=== PATIENT | male | born 1940 | race African-American/Black ===

== ENCOUNTER 2016-06-15 02:07 | Inpatient (IN) | payer MEDICARE, MEDICAID ==
[2016-06-15] VITALS (7 sets, daily range): BP systolic 92–132; BP diastolic 52–80
[~2016-06-15] VITALS: Ht 185.4 cm; Wt 99.8 kg
[~2016-06-15 02:07] MED LIST: LORazepam Inj 2mg/ml 1ml ONE
--- NOTE | 2016-06-15 02:13 | Emergency Room Report ---
History of Present Illness General Chief Complaint: Seizure Source: Family Member, EMS Present Illness HPI 76 YO M BIBEMS for seizure. Had witnessed seizure at home, atraumatic per family member/friend at residency. EMS tried to place line, was removed by patient. Another seizure en route. Fingerstick 120. Known history of epilepsy , friend states patient takes med but didnt take it lately. Also takes metoprolol - no other history or meds known by friend or EMS. No previous visits here per review in EMR Allergies: Coded Allergies: No Known Allergies (Unverified , 06/15/16) Patient History Past Medical History: HTN, seizures Past Surgical History: unable to obtain Pertinent Family History: unable to obtain Nursing Documentation-PMH Hx Hypertension: Yes Hx Seizures: Yes Review of Systems All Other Systems: limited - Patient seizing Physical Exam Sp02 EP Interpretation: reviewed, abnormal General Appearance: mild distress, other - Frothing, purposeful movement Head: normocephalic, atraumatic ENT: normal pharynx, no angioedema, other - frothing at mouth, no rasheeda or lip lacs Neck: normal inspection, full range of motion, supple, thyroid normal, no meningismus, no bony tend Respiratory: normal inspection, lungs clear, normal breath sounds, no rhonchi, no respiratory distress, no retraction, no accessory muscle use, no wheezing Cardiovascular #1: normal inspection, tachycardia, irregularly irregular Gastrointestinal: normal inspection, normal bowel sounds, non tender, soft, no guarding, no hernia Genitourinary: no CVA tenderness Musculoskeletal: normal inspection, back normal, normal range of motion, Hua' s Sign negative Neurologic: other - 4 limb movmeent intact Skin: no rash Lymphatic: normal inspection, no adenopathy Medical Decision Making Medicare Attestation I Carson Apodaca MD hereby attest that the medical record entry for date of service, 03/27/16 accurately reflects signatures/notations that I made in my capacity as MD when I treated/diagnosed the above listed Medicare beneficiary. I attest that this information is true, accurate and complete to the best of my knowledge. I understand that any falsification, omission, or concealment of material fact may subject me to administrative, civil, or criminal liability. This patient warrants hospital admission for extreme of age and has a condition that cannot be treated as outpatient. Diagnostic Impression: Primary Impression: Epileptic seizure, generalized Additional Impression: LILA (acute kidney injury) ER Course 76 YOM with known epilepsy, 2x seizures tonight. VS show atrial fib. Afebrile. IM ativan 2mg and IV ativan 2mg given in ED PLAN Labs, anti epileptic level check, CT Head, likely admission EKG Diagnostic Results Rate: tachycardiac, other - Atrial fib ST Segments: no acute changes ASA given to the pt in ED: No Rhythm Strip Diag. Results EP Interpretation: yes Rate: 120 Rhythm: other - Atrial fib Chest X-Ray Diagnostic Results EP Interpretation: Yes Findings: no consolidation, no effusion, no pneumothorax, no acute cardiopulmonary disease Number of Views: 1 Reevaluation Time: 03:25 Status: improved Reevaluation Impression Labs: No leuks. H&H stable. NA level normal Mild LILA All levels of possible anti-epileptics are negative ETOH level is 0 Tylenol, ASA levels are 0 CT head: no mas, CVA or abscess No other seizures in ED Patient resting comfortably ECG is Atrial fib. Patient's caregiver is Michael Callaway, Patient goes to [facility] patient in "first stage of dementia" likely NOT taking any anti- epileptic. Loaded with Yadira 1gram Endorsed to Dr Sainz for Dr Emmanuel for tele admission at 328am Disposition: ADMITTED INPATIENT Condition: Serious CARSON APODACA M.D. Jun 15, 2016 02:13
[2016-06-15] MEDS ORDERED: LORazepam Inj 2mg/ml 1ml IV ONE (02:15)
[2016-06-15] MEDS ORDERED: METOPROLOL TART25 MG ORAL (02:28)
[2016-06-15] MEDS ORDERED: LORazepam Inj 2mg/ml 1ml IM ONE (02:30)
[2016-06-15 02:34] LABS: EOSINOPHILS % (AUTO) 1.5 % (0.0-3.0); LYMPHOCYTES % (AUTO) 30.8 % (20.0-45.0); MEAN CORPUSCULAR HEMOGLOBIN 34.4 PG (27.0-31.0); MEAN CORPUSCULAR VOLUME 104 FL (80-99); MEAN PLATELET VOLUME 7.4 FL (6.5-10.1); MONOCYTES % (AUTO) 8.2 % (1.0-10.0); NEUTROPHILS % (AUTO) 57.5 % (45.0-75.0); PLATELET COUNT 192 K/UL (150-450); RED BLOOD COUNT 4.73 M/UL (4.70-6.10); RED CELL DISTRIBUTION WIDTH 11.8 % (11.6-14.8); WHITE BLOOD COUNT 8.5 K/UL (4.8-10.8)
[2016-06-15 02:46] LABS: TROPONIN I < 0.30 ng/mL (<=0.30)
[2016-06-15 02:49] LABS: ACETAMINOPHEN < 10 ug/mL (10-30); ALCOHOL < 10 mg/dL; CARBAMAZEPINE (TEGRETOL) < 2.0 ug/mL (4.0-12.0); VALPROIC ACID < 3 ug/mL (50-100)
[2016-06-15 02:50] LABS: ALANINE AMINOTRANSFERASE 18 U/L (3-41); ALBUMIN/GLOBULIN RATIO 1.4 (1.0-2.7); ANION GAP 32 (5-15); ASPARTATE AMINO TRANSFERASE 26 U/L (5-40); CALCIUM 9.4 mg/dL (8.6-10.2); CARBON DIOXIDE 11 mEQ/L (20-30); CHLORIDE 95 mEQ/L (98-107); CREATININE 1.3 mg/dL (0.7-1.2); HEMOLYSIS 52; POTASSIUM 3.9 mEQ/L (3.4-4.9); SODIUM 138 mEQ/L (135-145); TOTAL PROTEIN 6.7 g/dL (6.6-8.7)
[2016-06-15 03:00] LABS: CKMB 1.5 ng/mL (< 6.7)
[2016-06-15] MEDS ORDERED: levETIRAcetam 1,000 MG in D5W 110 ML IVPB STA (03:20)
[2016-06-15] MEDS ORDERED: levETIRAcetam 500mg vial IV ONE (03:43)
[2016-06-15 03:45] LABS: APPEARANCE,URINE CLEAR; KETONES,URINE 1+ (NEGATIVE); LEUKOCYTE ESTERASE ,URINE NEGATIVE (NEGATIVE); NITRITE,URINE NEGATIVE (NEGATIVE); PH,URINE 5 (4.5-8.0); PROTEIN,URINE 2+ (NEGATIVE); UROBILINOGEN,URINE NORMAL MG/DL (0.0-1.0)
[2016-06-15 03:53] LABS: AMORPHOUS SEDIMENT,UR FEW /LPF; BACTERIA,URINE FEW /HPF; RBC,URINE 30-40 /HPF (0 - 0); WBC,URINE 0 /HPF (0 - 0)
[2016-06-15] MEDS ORDERED: SPIRONOLACTONE25 MG ORAL (05:31)
[2016-06-15] MEDS ORDERED: LEVETIRACETAM250 MG PO (05:31)
[2016-06-15] MEDS ORDERED: Norco 5mg/325mg tab ORAL PRN (07:30)
[2016-06-15] MEDS ORDERED: LORazepam Inj 2mg/ml 1ml IM PRN (07:30)
[2016-06-15] MEDS: Spironolactone 25mg tab ORAL SCH (08:28)
[2016-06-15] MEDS ORDERED: Metoprolol 25mg tab ORAL SCH (09:00)
[2016-06-15] MEDS: D5W IV SCH ×2 (09:44→21:36)
[2016-06-15] MEDS: LEVETIRACETAM IV SCH ×2 (09:44→21:36)
--- NOTE | 2016-06-15 10:17 | History and Physical ---
History of Present Illness General Date patient seen: Jun 15, 2016 Time patient seen: 10:16 Reason for Hospitalization: Seizure Present Illness HPI 76 y/o male with pmh of Afib, HTN, CVA (10-12 years ago per cousin), dementia, seizure d/o who presents with witnessed seizure event. Per cousin at bedside, pt noted to have witness seizure activity around 1AM. Pt then w/ labored breathing. [place] called 911. Pt noted to have another seizure en route to ER. Pt again w/ another episode of seizure in ER. In ED, pt loaded w/ keppra 1g IV. CT head neg for acute process. This AM, pt somnolent, unable to arouse. Per cousin, pt will briefly arouse and then be confused. Of note, per cousin, pt had not refilled some of his medications for a while including Keppra and Eliquis. Allergies: Coded Allergies: No Known Allergies (Unverified , 06/15/16) Medication History Scheduled Levetiracetam (Levetiracetam), 250 MG PO BID, (Reported) Metoprolol Tartrate* (Metoprolol Tartrate*), 25 MG ORAL EVERY 12 HOURS, ( Reported) Spironolactone* (Aldactone*), 25 MG ORAL DAILY, (Reported) Patient History Healthcare decision maker Cousin Resuscitation status Full Code Advanced Directive on File Past Medical/Surgical History Past Medical/Surgical History: (1) HTN (hypertension) (2) CVA (cerebral vascular accident) (3) Seizure disorder (4) Atrial fibrillation Family History Family History: Patient reports no known family medical history. Social History Social History: (1) No significant social history Review of Systems ROS Narrative Unable to obtain given AMS Physical Exam Physical Exam Narrative General: somnolent Head: normocephalic, without obvious abnormality, atraumatic Eyes: conjunctivae/corneas clear. PERRL, EOM's intact Throat: lips, mucosa, and tongue normal. MMM Neck: supple, symmetrical, trachea midline, and no JVD Lungs: clear to auscultation bilaterally Heart: regular rate and rhythm, S1, S2 normal, no murmur, click, rub or gallop Abdomen: soft, non-tender, non-distended, bowel sounds normal; no masses or organomegaly Extremities: extremities normal, atraumatic, no cyanosis or edema Pulses: 2+ and symmetric Skin: skin color, texture, turgor normal; no rashes or lesions Neurologic: moving all extremities Last 24 Hour Vital Signs Date Time Temp Pulse Resp B/P Pulse Ox O2 Delivery O2 Flow Rate FiO2 06/15/16 08:29 59 92/52 06/15/16 08:18 97.5 59 20 92/52 96 Nasal Cannula 2.0 06/15/16 06:03 97.8 65 19 132/72 94 Nasal Cannula 3.0 06/15/16 06:03 97.3 61 14 113/63 100 Nasal Cannula 3.0 06/15/16 06:03 97.3 61 14 113/63 100 Nasal Cannula 3.0 06/15/16 04:30 97.5 70 14 110/61 100 Nasal Cannula 3.0 06/15/16 02:30 97.1 101 14 111/69 97 Nasal Cannula 3.0 06/15/16 02:30 101 14 Nasal Cannula 3.0 06/15/16 02:03 139 15 95 Room Air Intake and Output 06/14/16 06/15/16 19:00 07:00 Intake Total 400 ml Balance 400 ml Intake IV Total 100 ml Other 300 ml # Voids 1 Laboratory Tests Test 06/15/16 02:00 06/15/16 03:32 White Blood Count 8.5 K/UL (4.8-10.8) Red Blood Count 4.73 M/UL (4.70-6.10) Hemoglobin 16.3 G/DL (14.2-18.0) Hematocrit 49.2 % (42.0-52.0) Mean Corpuscular Volume 104 FL (80-99) H Mean Corpuscular Hemoglobin 34.4 PG (27.0-31.0) H Mean Corpuscular Hemoglobin Concent 33.0 G/DL (32.0-36.0) Red Cell Distribution Width 11.8 % (11.6-14.8) Platelet Count 192 K/UL (150-450) Mean Platelet Volume 7.4 FL (6.5-10.1) Neutrophils (%) (Auto) 57.5 % (45.0-75.0) Lymphocytes (%) (Auto) 30.8 % (20.0-45.0) Monocytes (%) (Auto) 8.2 % (1.0-10.0) Eosinophils (%) (Auto) 1.5 % (0.0-3.0) Basophils (%) (Auto) 2.0 % (0.0-2.0) Sodium Level 138 mEQ/L (135-145) Potassium Level 3.9 mEQ/L (3.4-4.9) Chloride Level 95 mEQ/L (98-107) L Carbon Dioxide Level 11 mEQ/L (20-30) L Anion Gap 32 (5-15) H Blood Urea Nitrogen 24 mg/dL (7-23) H Creatinine 1.3 mg/dL (0.7-1.2) H Estimat Glomerular Filtration Rate mL/min (>60) Glucose Level 158 mg/dL (74-106) H Calcium Level 9.4 mg/dL (8.6-10.2) Total Bilirubin 0.4 mg/dL (0.0-1.2) Aspartate Amino Transf (AST/SGOT) 26 U/L (5-40) Alanine Aminotransferase (ALT/SGPT) 18 U/L (3-41) Alkaline Phosphatase 87 U/L (40-129) Total Creatine Kinase 31 U/L (38-174) L Creatine Kinase MB 1.5 ng/mL (< 6.7) Creatine Kinase MB Relative Index 4.8 Troponin I < 0.30 ng/mL (<=0.30) Total Protein 6.7 g/dL (6.6-8.7) Albumin 4.0 g/dL (3.5-5.2) Globulin 2.7 g/dL Albumin/Globulin Ratio 1.4 (1.0-2.7) Salicylates Level < 1 mg/dL (10-30) L Acetaminophen Level < 10 ug/mL (10-30) L Phenytoin (Dilantin) Level < 0.8 ug/mL (10-20) L Valproic Acid (Depakene) Level < 3 ug/mL (50-100) L Carbamazepine (Tegretol) Level < 2.0 ug/mL (4.0-12.0) L Phenobarbital Level < 2.4 ug/mL (20.0-40.0) L Serum Alcohol < 10 mg/dL Urine Color Pale yellow Urine Appearance Clear Urine pH 5 (4.5-8.0) Urine Specific [place] 1.020 (1.005-1.035) Urine Protein 2+ (NEGATIVE) H Urine Glucose (UA) Negative (NEGATIVE) Urine Ketones 1+ (NEGATIVE) H Urine Occult Blood 4+ (NEGATIVE) H Urine Nitrite Negative (NEGATIVE) Urine Bilirubin Negative (NEGATIVE) Urine Urobilinogen Normal MG/DL (0.0-1.0) Urine Leukocyte Esterase Negative (NEGATIVE) Urine RBC 30-40 /HPF (0 - 0) H Urine WBC 0 /HPF (0 - 0) Urine Squamous Epithelial Cells None /LPF (NONE/OCC) Urine Amorphous Sediment Few /LPF (NONE) H Urine Bacteria Few /HPF (NONE) Urine Opiates Screen Negative (NEGATIVE) Urine Barbiturates Screen Negative (NEGATIVE) Phencyclidine (PCP) Screen Negative (NEGATIVE) Urine Amphetamines Screen Negative (NEGATIVE) Urine Benzodiazepines Screen Negative (NEGATIVE) Urine Cocaine Screen Negative (NEGATIVE) Urine Marijuana (THC) Screen Positive (NEGATIVE) H Height (Feet): 6 Height (Inches): 1.00 Weight (Pounds): 220 Medications Current Medications Medications (Trade) Dose Ordered Sig/[place] Route PRN Reason Start Time Stop Time Status Last Admin Dose Admin Acetaminophen/ Hydrocodone Bitart ([place] 5/325) 1 tab Q4H PRN ORAL Moderate Pain (Pain Scale 4-6) 06/15/16 07:30 06/22/16 07:29 Levetiracetam/ Dextrose (Keppra/D5W) 112.5 ml @ 450 mls/hr Q12HR IV 06/15/16 10:00 07/15/16 09:59 06/15/16 09:44 Lorazepam (Ativan 2mg/ml 1ml) 2 mg Q1H PRN IM For Seizures 06/15/16 07:30 06/22/16 07:29 Metoprolol Tartrate (Lopressor) 25 mg EVERY 12 HOURS ORAL 06/15/16 09:00 07/15/16 08:59 Spironolactone 25 mg 25 mg DAILY ORAL 06/15/16 09:00 07/15/16 08:59 Assessment/Plan Problem List: (1) Seizure disorder ICD Codes: G40.909 - Epilepsy, unspecified, not intractable, without status epilepticus SNOMED: 192256923 (2) LILA (acute kidney injury) ICD Codes: N17.9 - Acute kidney failure, unspecified SNOMED: 08192267 (3) Atrial fibrillation ICD Codes: I48.91 - Unspecified atrial fibrillation SNOMED: 72328688 (4) CVA (cerebral vascular accident) ICD Codes: I63.9 - Cerebral infarction, unspecified SNOMED: 546017817 (5) HTN (hypertension) ICD Codes: I10 - Essential (primary) hypertension SNOMED: 62237494 Status: stable Assessment/Plan Seizure likely to pt's noncompliance w/ keppra. Per cousin, pt had not filled med in a while. Admit to inpt Cardiology and neurology s/p keppra 1g loag Cont keppra 750mg BID Check EEG Consider MRI brain Hold MTP given bradycardia Restart Eliquis 5mg BID (per PCP Dr. Kaylee Multani, pt had not refilled this in a while but should be on it) Cont aldactone, statin DVT Prophylaxis: SCD, Eliquis Code Status: Full Hospital Classification Declaration: Based on this initial evaluation, and depending on the patient's clinical course, I anticipate that this patient will require hospitalization for 2-3 days for seizures and close respiratory/ hemodynamic monitoring. Disposition: Once the patient is stable to leave the hospital, I anticipate the patient will likely be discharged to the following environment: home with HH vs SNF I spent 70 minutes on this patient's case, and 37 minutes were dedicated to counseling and/or care coordination. Discussed with patient/family, nursing staff, SW/CM, cardiology, neurology regarding clinical status, treatment course , and disposition planning. Time of note may not reflect time of encounter. Oskar Fam M.D. Jun 15, 2016 10:17
--- NOTE | 2016-06-15 10:51 | Diagnostic Imaging Report ---
Indication: Seizure Technique: spiral acquisitions obtained through the brain. Angled axial and coronal 5 x 5 mm slices were reconstructed. No IV contrast utilized. Radiation dose was minimized using automated exposure control Total dose length product 1652 mGycm. CTDIvol(s) 70 mGy Comparison: none FINDINGS: No acute hemorrhage or edema. No mass effect or midline shift. There is age-related enlargement of the ventricles and extra axial CSF spaces. There is periventricular deep white matter ischemic change. Normal batista-white differentiation. Visualized orbits are unremarkable. Visualized sinuses are unremarkable. Intact calvarium. There is an old left brannon radiata and deep white matter lacunar infarct. There are small subtle lacunar infarcts in the right basal ganglia. Streak artifact from dental amalgam appears much of the posterior fossa. There is right maxillary sinus disease. There is minimal bilateral ethmoid sinus disease. IMPRESSION: Chronic and age-related changes. Negative for acute intracranial bleed or mass effect This agrees with the preliminary interpretation provided overnight by [facility] teleradiology service. The CT scanner at [facility] is accredited by the [employer] and the scans are performed using protocols designed to limit radiation exposure to as low as reasonably achievable to attain images of sufficient resolution adequate for diagnostic evaluation
--- NOTE | 2016-06-15 10:59 | Diagnostic Imaging Report ---
Indication: Chest pain Technique: One view of the chest Comparison: none Findings: Calcified granuloma is seen in the right upper lobe. Calcified granulomatous right paratracheal node or nodes are also demonstrated There is some scarring in the right upper lobe. The lungs and pleural spaces otherwise clear. Heart size is upper limits of normal. Aorta is tortuous ectatic and calcified. There is right paratracheal soft tissue prominence Impression: No definite acute bony process Right paratracheal soft tissue prominence, suspect on the basis of body habitus and tortuous vasculature, but upper mediastinal mass not completely excludable Evidence of old granulomatous disease
[2016-06-15] MEDS: D5 1/2NS 1,000 ML IV SCH ×2 (11:13→21:00)
[2016-06-15 11:22] LABS: ABG ALLEN TEST POSITIVE; ABG BASE EXCESS 0.7; ABG PCO2 36.6 mmHg (35.0-45.0)
[2016-06-15 12:50] LABS: THYROID STIMULATING HORMONE 2.67 uIU/mL (0.300-4.500)
--- NOTE | 2016-06-15 21:32 | Cardiology Progress Note ---
Assessment/Plan Assessment/Plan afib unkown duration siezure htn based on his risk score he wi lbenefit form anticoagualtion for stroke prevention if felt to be gayatri once neur wisei stable will consider he hsoudl have an mri of brain to see if any sub acute cva [id number] Objective Last 24 Hour Vital Signs Date Time Temp Pulse Resp B/P Pulse Ox O2 Delivery O2 Flow Rate FiO2 06/15/16 20:00 97.4 79 20 117/68 98 Nasal Cannula 2.0 06/15/16 19:18 Nasal Cannula 2.0 28 06/15/16 19:17 99 Nasal Cannula 2.0 28 06/15/16 17:21 Nasal Cannula 2.0 06/15/16 16:00 54 06/15/16 16:00 97.5 67 19 125/80 100 06/15/16 12:00 55 06/15/16 11:52 98.2 76 20 132/73 100 Nasal Cannula 2.0 06/15/16 08:29 59 92/52 06/15/16 08:18 97.5 59 20 92/52 96 Nasal Cannula 2.0 06/15/16 08:00 51 06/15/16 06:03 97.8 65 19 132/72 94 Nasal Cannula 3.0 06/15/16 06:03 97.3 61 14 113/63 100 Nasal Cannula 3.0 06/15/16 06:03 97.3 61 14 113/63 100 Nasal Cannula 3.0 06/15/16 04:30 97.5 70 14 110/61 100 Nasal Cannula 3.0 06/15/16 02:30 97.1 101 14 111/69 97 Nasal Cannula 3.0 06/15/16 02:30 101 14 Nasal Cannula 3.0 06/15/16 02:03 139 15 95 Room Air Intake and Output 06/14/16 06/15/16 19:00 07:00 Intake Total 400 ml Balance 400 ml Intake IV Total 100 ml Other 300 ml # Voids 1 Laboratory Tests Test 06/15/16 02:00 06/15/16 03:32 06/15/16 11:15 06/15/16 11:50 White Blood Count 8.5 K/UL (4.8-10.8) Red Blood Count 4.73 M/UL (4.70-6.10) Hemoglobin 16.3 G/DL (14.2-18.0) Hematocrit 49.2 % (42.0-52.0) Mean Corpuscular Volume 104 FL (80-99) H Mean Corpuscular Hemoglobin 34.4 PG (27.0-31.0) H Mean Corpuscular Hemoglobin Concent 33.0 G/DL (32.0-36.0) Red Cell Distribution Width 11.8 % (11.6-14.8) Platelet Count 192 K/UL (150-450) Mean Platelet Volume 7.4 FL (6.5-10.1) Neutrophils (%) (Auto) 57.5 % (45.0-75.0) Lymphocytes (%) (Auto) 30.8 % (20.0-45.0) Monocytes (%) (Auto) 8.2 % (1.0-10.0) Eosinophils (%) (Auto) 1.5 % (0.0-3.0) Basophils (%) (Auto) 2.0 % (0.0-2.0) Sodium Level 138 mEQ/L (135-145) Potassium Level 3.9 mEQ/L (3.4-4.9) Chloride Level 95 mEQ/L (98-107) L Carbon Dioxide Level 11 mEQ/L (20-30) L Anion Gap 32 (5-15) H Blood Urea Nitrogen 24 mg/dL (7-23) H Creatinine 1.3 mg/dL (0.7-1.2) H Estimat Glomerular Filtration Rate mL/min (>60) Glucose Level 158 mg/dL (74-106) H Calcium Level 9.4 mg/dL (8.6-10.2) Total Bilirubin 0.4 mg/dL (0.0-1.2) Aspartate Amino Transf (AST/SGOT) 26 U/L (5-40) Alanine Aminotransferase (ALT/SGPT) 18 U/L (3-41) Alkaline Phosphatase 87 U/L (40-129) Total Creatine Kinase 31 U/L (38-174) L Creatine Kinase MB 1.5 ng/mL (< 6.7) Creatine Kinase MB Relative Index 4.8 Troponin I < 0.30 ng/mL (<=0.30) Total Protein 6.7 g/dL (6.6-8.7) Albumin 4.0 g/dL (3.5-5.2) Globulin 2.7 g/dL Albumin/Globulin Ratio 1.4 (1.0-2.7) Salicylates Level < 1 mg/dL (10-30) L Acetaminophen Level < 10 ug/mL (10-30) L Phenytoin (Dilantin) Level < 0.8 ug/mL (10-20) L Valproic Acid (Depakene) Level < 3 ug/mL (50-100) L Carbamazepine (Tegretol) Level < 2.0 ug/mL (4.0-12.0) L Phenobarbital Level < 2.4 ug/mL (20.0-40.0) L Serum Alcohol < 10 mg/dL Urine Color Pale yellow Urine Appearance Clear Urine pH 5 (4.5-8.0) Urine Specific [place] 1.020 (1.005-1.035) Urine Protein 2+ (NEGATIVE) H Urine Glucose (UA) Negative (NEGATIVE) Urine Ketones 1+ (NEGATIVE) H Urine Occult Blood 4+ (NEGATIVE) H Urine Nitrite Negative (NEGATIVE) Urine Bilirubin Negative (NEGATIVE) Urine Urobilinogen Normal MG/DL (0.0-1.0) Urine Leukocyte Esterase Negative (NEGATIVE) Urine RBC 30-40 /HPF (0 - 0) H Urine WBC 0 /HPF (0 - 0) Urine Squamous Epithelial Cells None /LPF (NONE/OCC) Urine Amorphous Sediment Few /LPF (NONE) H Urine Bacteria Few /HPF (NONE) Urine Opiates Screen Negative (NEGATIVE) Urine Barbiturates Screen Negative (NEGATIVE) Phencyclidine (PCP) Screen Negative (NEGATIVE) Urine Amphetamines Screen Negative (NEGATIVE) Urine Benzodiazepines Screen Negative (NEGATIVE) Urine Cocaine Screen Negative (NEGATIVE) Urine Marijuana (THC) Screen Positive (NEGATIVE) H Arterial Blood pH 7.440 (7.350-7.450) Arterial Blood Partial Pressure CO2 36.6 mmHg (35.0-45.0) Arterial Blood Partial Pressure O2 116.2 mmHg (75.0-100.0) H Arterial Blood HCO3 24.5 mmol/L (22.0-26.0) Arterial Blood Oxygen Saturation 97.6 % (92.0-98.0) Arterial Blood Base Excess 0.7 Cornelio Test Positive Vitamin B12 Level 1655 pg/mL (211-946) H Folate Pending Thyroid Stimulating Hormone (TSH) 2.670 uIU/mL (0.300-4.500) Prolactin Pending ALEX SIDHU Jun 15, 2016 21:32
--- NOTE | 2016-06-15 22:38 | Consultation ---
Consult Note Consult Note NEUROLOGY CONSULTATION: Full note dictated #[id number] 76 Y/ O, RH, BM who has a PH of HTN, a stroke with unknown consequences 20 years ago and a prior history of seizures. There is also a recent history of cognitive dysfunction. He was brought into the [facility] ER by ambulance in the early hours of 06/15/16 for a single seizure at home. In the ambulance he had another seizure. Unfortunately there is no description of any of his seizures available. ON EXAM: II Pulse - in A-fib. Oriented to self only. Problems with memory, VS function, HCF and language. Mild right hemiparesis Brisker reflexes on right. Mildly right paretic gait. IMPRESSION: Breakthrough seizures in patient with prior H/O seizures due to not taking antiseizure medicine. Right paresis unexplained. REC: Agree with Rx. Keppra 750 mg q 12 H Will review EEG. MRI of brain tomorrow to evaluate for acute vs chronic reason for right paresis. Anticoagulate for A- fib. W/U for cognitive function - ? post-ictal vs degenerative process. Lester Villareal M.D., M.S.P.H. LESTER VILLAREAL Jun 15, 2016 22:38
--- NOTE | 2016-06-15 23:58 | Electroencephalogram ---
DATE OF PROCEDURE: 06/15/2016 REQUESTING PHYSICIAN: Flavia Scott M.D. READING PHYSICIAN: Adair Villareal M.D. HISTORY: This EEG was performed on a 76-year-old, black gentleman with a history of hypertension, a questionable stroke, questionable seizure disorder, and recent cognitive decline. The patient was noted to have a seizure at home and then a second seizure on his way to the hospital in the ambulance. The description of the seizures is unavailable to us. The purpose of this EEG was to evaluate the patient for the degree and type of cerebral dysfunction and to exclude ongoing ictal or interictal phenomena. TECHNICAL NOTE: This EEG was performed on a [employer] Unit with electrodes placed on the scalp according to the International 10-20 system. [id number] and [id number] montages were used. The EEG was technically satisfactory and was performed in the awake, drowsy and sleep states. OBSERVATIONS: In the best awake and alerted state, the background activity consisted of 7 to 8 Hz theta/alpha activity. Drowsiness was characterized by slowing of the background in the 4-5 Hz theta range. Stage II sleep was characterized by further slowing of the background in the delta and theta range, the presence of vertex waves, and 14 Hz sleep spindles. During sleep and drowsiness, left temporal polymorphic delta activity was noted. In addition, a few isolated T3 sharp discharges were also seen throughout the tracing. IMPRESSION: This is an abnormal EEG characterized by: 1. Slowing of the background in the 7-8 Hz range in the best awake state. 2. The presence of left temporal polymorphic delta activity seen during drowsiness and sleep. 3. The presence of a few isolated T3 sharp discharges. COMMENT: This study is consistent with: 1. An encephalopathy of a mild degree. 2. Focal left temporal dysfunction. 3. A left midtemporal epileptogenic focus. Adair Villareal M.D., M.S.P.H. DR: STEPHANIE JOB#: [id number] CC: HOSSEIN
[2016-06-16] VITALS (7 sets, daily range): BP systolic 142–161; BP diastolic 76–99
--- NOTE | 2016-06-16 00:08 | Consultation ---
DATE OF CONSULTATION: 06/15/2016 CARDIAC CONSULTATION REFERRING PHYSICIAN: Flavia Scott M.D. REASON FOR REFERRAL: Atrial fibrillation and seizure. HISTORY OF PRESENT ILLNESS: This is an elderly gentleman, who is somewhat of a poor historian. The patient apparently has not seen the physician for some time it appears. He presented to the Emergency Room at [facility]. Information is obtained from review of the patient's chart and from my discussion with the patient. He was apparently brought in by paramedics with witnessed seizure at home and atraumatic, brought in by family members and friends at [facility] and the EMS placed a line that was removed by the patient previously above 120. No history of epilepsy. The patient takes medication, but he take at least something for seizures. He also takes metoprolol. No other history available. The patient denies any chest pain or pressure, shortness of breath, PND, orthopnea, palpitations, dizziness, or lightheadedness. PAST MEDICAL HISTORY: Reported. Positive for history of hypertension and seizures. No other significant abnormality or history is known. Sales Merchandising Specialist run sheet indicates that the patient was found to have a blood pressure 159/87 with a heart rate of 75 and respiration rate of 16. The patient was incontinent of urine. PAST SURGICAL HISTORY: He denies. SOCIAL HISTORY: He does not smoke or does not drink at least. He denies drug abuse. ALLERGIES: He denies. REVIEW OF SYSTEMS: Pulmonary: Denies coughing or wheezing. Constitutional: He denies. PHYSICAL EXAMINATION: GENERAL: Shows to be an elderly gentleman, in no apparent respiratory distress. HEENT: Unremarkable. NECK: Supple. No jugular venous distention. LUNGS: Clear to auscultation and percussion anteriorly. CARDIAC: Regular irregular. No RV lifts, heaves, or thrills noted. ABDOMEN: Soft and nontender. Positive bowel sounds. EXTREMITIES: There is no edema. LABORATORY AND DIAGNOSTIC DATA: Chest x-ray shows no definite bony abnormalities right paratracheal soft tissue prominence suspect on base of body habitus and tortuous vessels, but the mass is not completely excluded. A head CT was performed that shows chronic and age-related changes, negative for acute intracranial bleed, or mass effect. The patient's electrocardiogram shows atrial fibrillation and ventricular response appears to be controlled. Other laboratories, white count 8.5, hemoglobin 16.3, and platelet count of 192. Blood gases, pH of 7.44, pCO2 37, and PO2 of 116. Bicarbonate of 25. Sodium is 138, potassium 3.9, chloride 95, bicarbonate 11, BUN of 24, creatinine 1.3, and glucose of 168. Troponin is less than 0.03. Vitamin B12 was 60 range from 55. TSH is 2.76. Urinalysis 30 to 40 RBCs. Urine drug screen is positive for marijuana otherwise negative. ASSESSMENT: 1. Atrial fibrillation unknown duration. 2. Seizure disorder. 3. Hypertension. PLAN: Dr. Scott, this patient was seen in cardiac consultation. The patient is deemed a poor historian and denies having had an irregular heart rhythm before and certainly in light of the fact that the rate is controlled with beta-blockers indicates that it may be actually a chronic issue, but nevertheless, the patient does have some risk factors for stroke. CHADS2-VASc score is 3 based on gender, age and hypertension indicating that the high risk of stroke and patient should benefit from use of anticoagulation for stroke prevention if not contraindicated, but we will need to discuss further in that regard. Once the patient is neurologically stable to see if it would appropriate to be started on anticoagulation. Robert Aguirre M.D. DR: ALVARADO JOB#: [id number] CC:
[2016-06-16] MEDS: D5 1/2NS 1,000 ML IV SCH (06:05)
--- NOTE | 2016-06-16 06:27 | Consultation ---
DATE OF CONSULTATION: 06/15/2016 NEUROLOGY CONSULTATION CONSULTING PHYSICIAN: Adair Villareal M.D. REQUESTING PHYSICIAN: Oskar Fam M.D. TIME OF CONSULTATION: At 2200 hours. HISTORY: Mr. Jesse Stewart is a 76-year-old, right-handed, black gentleman, who does have a past history of hypertension, a stroke approximately 20 years ago with unknown consequences, a prior history of seizures, and a more recent history of cognitive dysfunction. He was brought into the [facility] emergency room by ambulance in the early hours of 06/15/2016 for a single seizure at home that was witnessed by family. In the ambulance, he had a second seizure. Unfortunately, there is no description of any of his seizures available in his entire chart. The patient himself is completely oblivious as to what exactly happened. He denies any prior history of seizures. He denies taking any medicines for seizures in the past and states his only problems are high blood pressure and a stroke 20 years ago. PAST MEDICAL HISTORY: Significant for high blood pressure, stroke 20 years ago with unknown consequences, questionable history of seizures, and questionable recent history of memory disturbance. FAMILY HISTORY: Nothing significant as per the patient, but was quite unreliable. PERSONAL HISTORY: Home: He says that he lives alone. 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 Habits: He denies the use of tobacco or alcohol, but does smoke weed. PRESENT MEDICATIONS: Include aspirin 81 mg daily, Keppra 500 mg twice a day, spironolactone 250 mg twice a day, Ativan 2 mg IM as needed, and [place] as needed. PHYSICAL EXAMINATION: GENERAL: He is a well-developed, well-nourished, pleasant black gentleman, lying in bed, in no acute distress. VITAL SIGNS: Pulse 80 per minute and irregularly irregular, blood pressure 117/68 mmHg, respirations 20 per minute, and temperature 97.4 degrees Fahrenheit. HEAD: Normocephalic and atraumatic. EENT: Benign. NECK: No neck rigidity was observed. NEUROLOGIC EXAMINATION: MENTAL STATUS EXAMINATION: He was awake, but not completely alert. He was oriented to self only. He had no idea where he was or what the date was. He was able to recall 3/3 words immediately, but could not remember any of them in one minute and 3 minutes. He was unable to tell me who the present President was and who prior Presidents were. His mathematical skills were impaired. His visuospatial function was also impaired. SPEECH: He had no dysarthria. LANGUAGE: He had anomia for low-frequency words. CRANIAL NERVE EXAMINATION: II: The visual soares were intact to confrontation testing. III, IV & : The external ocular movements were full and the pupils 3 mm in diameter, equal, round, regular, and reactive to light. V: He had normal facial sensations and the temporales, masseters, and pterygoids functioned normally. VII: He had a mild right VII central facial paresis. VIII: He was able to hear well bilaterally and had no nystagmus. IX: The palate moved symmetrically on phonation. X: He had no hoarseness of voice. XI: The sternocleidomastoids and trapezii function normally. XII: The tongue was in the midline without any fasciculations or atrophy. He did have a bite pramod on the right lateral aspect of the tongue. MOTOR SYSTEM: The tone was normal in all four extremities. Examination of muscle mass revealed no focal wasting. Examination of power revealed grade 5/5 power except for grade 4+/5 power in the right finger extensors and grade 4-/5 power in the right iliopsoas. SENSORY EXAMINATION: He had intact sensations to pinprick, light touch, and graphesthesia. COORDINATION: He performed well on [id number] testing. He was unable to perform [id number]-dj-[id number] testing. REFLEXES: 2+ on the right and 1+ on the left in the biceps, triceps, brachioradialis, and knees, 0 at both ankles. The plantar responses were flexor bilaterally. STANCE: He stood up with support on both sides. GAIT: He walked with support on both sides with a mildly right paretic gait. DIAGNOSTIC IMPRESSION: 1. Mr. Jesse Stewart is a 76-year-old, right-handed, black gentleman, who does have a past history of hypertension, a questionable history of a stroke 20 years ago, a questionable history of seizures in the past, and recently cognitive dysfunction. 2. He was brought into the [facility] emergency room, in the early hours of 06/15/2016 for a single seizure at home witnessed by family and then another seizure in the ambulance, unfortunately no description of the seizure is available. 3. On neurological examination at this time, he does demonstrate an irregularly irregular pulse, and on the monitor has atrial fibrillation. He has problems with orientation, recent and remote memory, visuospatial function, higher cognitive function, and language. He also has a right hemiparesis involving the face, upper and lower extremities with brisker reflexes on the right side compared to the left with a mildly right paretic gait. 4. Laboratory data revealed a CBC that is relatively benign except for macrocytic indices, a chemistry panel, which reveals a BUN elevated to 24, creatinine elevated to 1.3, glucose elevated to 158, but normal B12 level, normal TSH, a relatively normal urinalysis except for 30-40 red blood cells per high-power field. A urine toxicology screen is positive for tetrahydrocannabinols in the urine. 5. The CT scan of the brain without contrast reveals atrophy and deep white matter changes, but no acute pathology. 6. The patient's history and neurological examination are most compatible with possible breakthrough seizures in a patient with a prior history of seizures who is not taking his antiseizure medicine. 7. The right hemiparesis is unexplained at this point in time, but may be related to his prior history of a stroke versus a new cerebrovascular event that is invisible on the CT scan. RECOMMENDATIONS: 1. Agree with management thus far. 2. The patient's dose of Keppra should be increased to 750 mg q.12 hours. 3. He just had his EEG done and I shall review it later on tonight. 4. An MRI scan of the brain will be ordered for tomorrow to evaluate the patient for an acute versus chronic reason for his right hemiparesis. 5. The patient is in atrial fibrillation and is at a high risk of stroke and thus should be anticoagulated. 6. The patient does exhibit significant cognitive dysfunction at this point in time. This may either be related to a postictal state versus the massive amounts of benzodiazepines he has been given versus a degenerative process. We should thus observe him and depending on how he fares over the next day or so, further recommendations will be given. Thank you for entrusting me with the care of Mr. Stewart. I shall follow him with you. Adair K. Dionna, M.D., M.S.P.H. DR: CHARITY JOB#: [id number] MTDD
[2016-06-16] MEDS: Metoprolol 5mg/5ml Inj IVP SCH ×2 (07:13→07:14)
[2016-06-16 07:25] LABS: BASOPHILS % (AUTO) 0.7 % (0.0-2.0); EOSINOPHILS % (AUTO) 0.3 % (0.0-3.0); LYMPHOCYTES % (AUTO) 9.9 % (20.0-45.0); MEAN CORPUSCULAR HEMOGLOBIN 34.1 PG (27.0-31.0); MEAN CORPUSCULAR HGB CONC 33.5 G/DL (32.0-36.0); MEAN CORPUSCULAR VOLUME 102 FL (80-99); MEAN PLATELET VOLUME 7.4 FL (6.5-10.1); MONOCYTES % (AUTO) 5.6 % (1.0-10.0); NEUTROPHILS % (AUTO) 83.6 % (45.0-75.0); PLATELET COUNT 188 K/UL (150-450); RED BLOOD COUNT 4.89 M/UL (4.70-6.10); RED CELL DISTRIBUTION WIDTH 11.6 % (11.6-14.8); WHITE BLOOD COUNT 8.9 K/UL (4.8-10.8)
[2016-06-16] MEDS ORDERED: Diltiazem 25mg/5ml IV ONE (07:45)
[2016-06-16 07:55] LABS: ANION GAP 17 (5-15); CALCIUM 9.9 mg/dL (8.6-10.2); CARBON DIOXIDE 24 mEQ/L (20-30); CHLORIDE 99 mEQ/L (98-107); CREATININE 0.9 mg/dL (0.7-1.2); HEMOLYSIS 9; MAGNESIUM 1.8 mg/dL (1.7-2.5); PHOSPHORUS 2.5 mg/dL (2.5-4.8); POTASSIUM 3.6 mEQ/L (3.4-4.9); SODIUM 140 mEQ/L (135-145)
[2016-06-16 08:12] LABS: PROLACTIN 16.1 ng/mL (4.0-15.2)
[2016-06-16] MEDS ORDERED: Aspirin Baby 81mg ORAL SCH (09:00)
--- NOTE | 2016-06-16 09:00 | General Progress Note ---
Assessment/Plan Problem List: (1) Seizure disorder ICD Codes: G40.909 - Epilepsy, unspecified, not intractable, without status epilepticus SNOMED: 995051046 (2) LILA (acute kidney injury) ICD Codes: N17.9 - Acute kidney failure, unspecified SNOMED: 69699228 (3) Atrial fibrillation ICD Codes: I48.91 - Unspecified atrial fibrillation SNOMED: 17139981 (4) CVA (cerebral vascular accident) ICD Codes: I63.9 - Cerebral infarction, unspecified SNOMED: 035369841 (5) HTN (hypertension) ICD Codes: I10 - Essential (primary) hypertension SNOMED: 29114853 Status: stable Assessment/Plan Seizure likely to pt's noncompliance w/ keppra. Per cousin, pt had not filled med in a while. D/w PCP at [facility] who concurs that pt had not filled keppra or Eliquis in a few months Cardiology and neurology consulted, appreciate rec's s/p keppra 1g loag Cont keppra 750mg BID EEG revealed a mild encephalopathy, left temporal dysfunction and a left mid- temporal epileptogenic focus F/u MRI brain Restart MTP 25mg PO BID Restart Eliquis 5mg BID Cont aldactone, statin SW consulted for assistance w/ dispo DVT Prophylaxis: SCD, Eliquis Code Status: Full Hospital Classification Declaration: Based on this initial evaluation, and depending on the patient's clinical course, I anticipate that this patient will require hospitalization for 2-3 days for seizures and close respiratory/ hemodynamic monitoring. Disposition: Once the patient is stable to leave the hospital, I anticipate the patient will likely be discharged to the following environment: home with vs SNF I spent 40 minutes on this patient's case, and 22 minutes were dedicated to counseling and/or care coordination. Discussed with patient/family, nursing staff, SW/CM, cardiology, neurology regarding clinical status, treatment course , and disposition planning. Time of note may not reflect time of encounter. Subjective Date patient seen: Jun 16, 2016 Time patient seen: 09:00 ROS Limited/Unobtainable: No Constitutional: Reports: no symptoms HEENT: Reports: no symptoms Cardiovascular: Reports: no symptoms Respiratory: Reports: no symptoms Gastrointestinal/Abdominal: Reports: no symptoms Genitourinary: Reports: no symptoms Neurologic/Psychiatric: Reports: no symptoms Endocrine: Reports: no symptoms Hematologic/Lymphatic: Reports: no symptoms Allergies: Coded Allergies: No Known Allergies (Unverified , 06/15/16) All Systems: reviewed and negative except above Subjective No acute o/n events More awake, alert. Knows he is in a hospital, but does not know name or location. Does not know date Does not remember events that brought him to hospital Awaiting MRI brain Objective Last 24 Hour Vital Signs Date Time Temp Pulse Resp B/P Pulse Ox O2 Delivery O2 Flow Rate FiO2 06/16/16 08:04 116 160/99 06/16/16 07:57 97.9 116 20 160/99 99 Room Air 06/16/16 07:14 74 142/79 06/16/16 07:13 74 142/79 06/16/16 04:00 74 06/16/16 04:00 97.3 75 18 142/79 98 Room Air 06/16/16 00:00 96.8 77 20 145/76 99 Room Air 06/16/16 00:00 69 06/15/16 20:00 69 06/15/16 20:00 97.4 79 20 117/68 98 Nasal Cannula 2.0 06/15/16 19:18 Nasal Cannula 2.0 28 06/15/16 19:17 99 Nasal Cannula 2.0 28 06/15/16 17:21 Nasal Cannula 2.0 06/15/16 16:00 54 06/15/16 16:00 97.5 67 19 125/80 100 06/15/16 12:00 55 06/15/16 11:52 98.2 76 20 132/73 100 Nasal Cannula 2.0 Intake and Output 06/15/16 06/16/16 19:00 07:00 Intake Total 850 ml Output Total 1100 ml Balance 850 ml -1100 ml Intake IV Total 850 ml Output Urine Total 1100 ml # Voids 3 Laboratory Tests 06/15/16 11:15: Arterial Blood pH 7.440, Arterial Blood Partial Pressure CO2 36.6, Arterial Blood Partial Pressure O2 116.2H, Arterial Blood HCO3 24.5, Arterial Blood Oxygen Saturation 97.6, Arterial Blood Base Excess 0.7, Cornelio Test Positive 06/15/16 11:50: Vitamin B12 Level 1655H, Folate [Pending], Thyroid Stimulating Hormone (TSH) 2.670, Prolactin 16.1H 06/16/16 05:20: White Blood Count 8.9, Red Blood Count 4.89, Hemoglobin 16.7, Hematocrit 49.8, Mean Corpuscular Volume 102H, Mean Corpuscular Hemoglobin 34.1H, Mean Corpuscular Hemoglobin Concent 33.5, Red Cell Distribution Width 11.6, Platelet Count 188, Mean Platelet Volume 7.4, Neutrophils (%) (Auto) 83.6H, Lymphocytes ( %) (Auto) 9.9L, Monocytes (%) (Auto) 5.6, Eosinophils (%) (Auto) 0.3, Basophils (%) (Auto) 0.7, Erythrocyte Sedimentation Rate [Pending], Sodium Level 140, Potassium Level 3.6, Chloride Level 99, Carbon Dioxide Level 24, Anion Gap 17H, Blood Urea Nitrogen 12, Creatinine 0.9, Estimat Glomerular Filtration Rate , Glucose Level 92, Hemoglobin A1c 4.4, Calcium Level 9.9, Phosphorus Level 2.5, Magnesium Level 1.8, Vitamin D 25-Hydroxy [Pending], 25-Hydroxy Vitamin D2 [ Pending], 25-Hydroxy Vitamin D3 [Pending], Rapid Plasma Reagin [Pending] Height (Feet): 6 Height (Inches): 1.00 Weight (Pounds): 220 Objective General: alert, cooperative, no distress, appears stated age Head: normocephalic, without obvious abnormality, atraumatic Eyes: conjunctivae/corneas clear. PERRL, EOM's intact Throat: lips, mucosa, and tongue normal. MMM Neck: supple, symmetrical, trachea midline, and no JVD Lungs: clear to auscultation bilaterally Heart: irregularly irregular, S1, S2 normal, no murmur, click, rub or gallop Abdomen: soft, non-tender, non-distended, bowel sounds normal; no masses or organomegaly Extremities: extremities normal, atraumatic, no cyanosis or edema Pulses: 2+ and symmetric Skin: skin color, texture, turgor normal; no rashes or lesions Neurologic: grossly normal, no focal deficits Oskar Fam M.D. Jun 16, 2016 09:00
[2016-06-16] MEDS: Spironolactone 25mg tab ORAL SCH (09:37)
[2016-06-16] MEDS: Metoprolol 25mg tab ORAL SCH ×2 (09:37→20:23)
[2016-06-16] MEDS: Eliquis 2.5mg tablet ORAL SCH ×2 (09:38→17:41)
--- NOTE | 2016-06-16 14:16 | Neurology Progress Note ---
Interim History Interim History Interim History Mr. Stewart feels better. He continues to be seizure-free. He feels that his mind is clearer. He feels generally stronger. He is still oblivious of the events that brought him to the hospital. He still denies having had seizures in the past. Review of Systems Neuro Review of Systems Benign. Objective Physical Exam Last Vital Signs Date Time Temp Pulse Resp B/P Pulse Ox O2 Delivery O2 Flow Rate FiO2 06/16/16 11:20 97.7 101 20 145/96 98 Room Air 06/15/16 20:00 2.0 06/15/16 19:18 28 Laboratory Tests Test 06/16/16 05:20 White Blood Count 8.9 K/UL (4.8-10.8) Red Blood Count 4.89 M/UL (4.70-6.10) Hemoglobin 16.7 G/DL (14.2-18.0) Hematocrit 49.8 % (42.0-52.0) Mean Corpuscular Volume 102 FL (80-99) H Mean Corpuscular Hemoglobin 34.1 PG (27.0-31.0) H Mean Corpuscular Hemoglobin Concent 33.5 G/DL (32.0-36.0) Red Cell Distribution Width 11.6 % (11.6-14.8) Platelet Count 188 K/UL (150-450) Mean Platelet Volume 7.4 FL (6.5-10.1) Neutrophils (%) (Auto) 83.6 % (45.0-75.0) H Lymphocytes (%) (Auto) 9.9 % (20.0-45.0) L Monocytes (%) (Auto) 5.6 % (1.0-10.0) Eosinophils (%) (Auto) 0.3 % (0.0-3.0) Basophils (%) (Auto) 0.7 % (0.0-2.0) Erythrocyte Sedimentation Rate 9 MM/HR (0-20) Sodium Level 140 mEQ/L (135-145) Potassium Level 3.6 mEQ/L (3.4-4.9) Chloride Level 99 mEQ/L (98-107) Carbon Dioxide Level 24 mEQ/L (20-30) Anion Gap 17 (5-15) H Blood Urea Nitrogen 12 mg/dL (7-23) Creatinine 0.9 mg/dL (0.7-1.2) Estimat Glomerular Filtration Rate mL/min (>60) Glucose Level 92 mg/dL (74-106) Hemoglobin A1c 4.4 % (< 6.0) Calcium Level 9.9 mg/dL (8.6-10.2) Phosphorus Level 2.5 mg/dL (2.5-4.8) Magnesium Level 1.8 mg/dL (1.7-2.5) Vitamin D 25-Hydroxy Pending 25-Hydroxy Vitamin D2 Pending 25-Hydroxy Vitamin D3 Pending Rapid Plasma Reagin Pending Neurologic Exam Objective PHYSICAL EXAMINATION: GENERAL: He is a well-developed, well-nourished, pleasant black gentleman, lying in bed, in no acute distress. HEAD: Normocephalic and atraumatic. EENT: Benign. NECK: No neck rigidity was observed. NEUROLOGIC EXAMINATION: MENTAL STATUS EXAMINATION: He was awake and alert. He was oriented to self only. He had no idea where he was or what the date was. He was able to recall 3/3 words immediately, but could not remember 1/3 in 1 and 3 minutes. He was unable to tell me who the present President was and who prior Presidents were. His mathematical skills were impaired. His visuospatial function was also impaired. SPEECH: He had no dysarthria. LANGUAGE: He had anomia for low-frequency words. CRANIAL NERVE EXAMINATION: II: The visual soares were intact to confrontation testing. III, IV & : The external ocular movements were full and the pupils 3 mm in diameter, equal, round, regular, and reactive to light. V: He had normal facial sensations and the temporales, masseters, and pterygoids functioned normally. VII: He had a mild right VII central facial paresis. VIII: He was able to hear well bilaterally and had no nystagmus. IX: The palate moved symmetrically on phonation. X: He had no hoarseness of voice. XI: The sternocleidomastoids and trapezii function normally. XII: The tongue was in the midline without any fasciculations or atrophy. He did have a bite pramod on the right lateral aspect of the tongue. MOTOR SYSTEM: The tone was normal in all four extremities. Examination of muscle mass revealed no focal wasting. Examination of power revealed grade 5/ 5 power except for grade 4+/5 power in the right finger extensors and grade 4-/ 5 power in the right iliopsoas. SENSORY EXAMINATION: He had intact sensations to pinprick, light touch, and graphesthesia. COORDINATION: He performed well on [id number]-[id number] testing. He was unable to perform [id number]-ji-dlrh testing. REFLEXES: 2+ on the right and 1+ on the left in the biceps, triceps, brachioradialis, and knees, 0 at both ankles. The plantar responses were flexor bilaterally. STANCE: He stood up with support on one sides. GAIT: He walked with support on one side with a mildly right paretic gait. Impression/Recommendations Diagnostic Impression 1. Mr. Jesse Stewart is a 76-year-old, right-handed, black gentleman, who does have a past history of hypertension, a questionable history of a stroke 20 years ago, a questionable history of seizures in the past, and recently cognitive dysfunction. 2. He was brought into the [facility] emergency room, in the early hours of 06/15/2016 for a single seizure at home witnessed by family and then another seizure in the ambulance, unfortunately no description of the seizure is available. 3. He feels better today and has had no further seizures. 4. On neurological examination, at this time, he does demonstrate an irregularly irregular pulse, and on the monitor has atrial fibrillation. He has problems with orientation, recent and remote memory, visuospatial function, higher cognitive function, and language. He also has a right hemiparesis involving the face, upper and lower extremities with brisker reflexes on the right side compared to the left with a mildly right paretic gait. His cognitive function is minimally better. 5. Laboratory data revealed a CBC that is relatively benign except for macrocytic indices, a chemistry panel, which reveals a BUN elevated to 24, creatinine elevated to 1.3, glucose elevated to 158, but normal B12 level, normal TSH, a relatively normal urinalysis except for 30-40 red blood cells per high-power field. A urine toxicology screen is positive for tetrahydrocannabinols in the urine. A single prolactin level is elevated. 6. The CT scan of the brain without contrast reveals atrophy and deep white matter changes, but no acute pathology. 7. The EEG revealed a mild encephalopathy, left temporal dysfunction and a left mid-temporal epileptogenic focus. 8. The patient's history and neurological examination are most compatible with possible breakthrough seizures in a patient with a prior history of seizures who is not taking his antiseizure medicine. The patients seizure type is most probably left temporal focal with secondary generalization 9. The right hemiparesis is unexplained at this point in time, but may be related to his prior history of a stroke versus a new cerebrovascular event that is invisible on the CT scan. Recommendations 1. Continue present management. 2. Continue Keppra 750 mg q.12 hours. 3. Await MRI scan of the brain to evaluate for an acute versus chronic reason for his right hemiparesis. 4. The patient is in atrial fibrillation and is at a high risk of stroke and thus should be anticoagulated. 5. Observe cognitive function. Adair Villareal M.D., M.S.ADAIR MAURO Jun 16, 2016 14:16
[2016-06-17 00:06] VITALS: BP 123/98
[2016-06-17 04:00] VITALS: BP 141/97
[2016-06-17 07:36] VITALS: BP 156/104
[2016-06-17] MEDS: Eliquis 2.5mg tablet ORAL SCH ×2 (09:15→17:28)
[2016-06-17] MEDS: Metoprolol 25mg tab ORAL SCH ×2 (09:15→21:54)
[2016-06-17] MEDS: Spironolactone 25mg tab ORAL SCH (09:15)
--- NOTE | 2016-06-17 10:38 | Cardiology Progress Note ---
Assessment/Plan Assessment/Plan afib permanenet siezure htn he is much more awake and responsive to day i had him on dilt drip yest based on his risk score he veronica benefit form anticoagulation for stroke prevention if felt to be safe he previously has been on Coumadin through the [facility] he say in now on eliquis (need to make sure he can take with his insurance as outpt ) has poor rate control will start on dilt cd as well as increase in bb for hr and bp control hold off on aldactoene to allow room for hr control Subjective Cardiovascular: Denies: chest pain, irregular heart rate, lightheadedness Respiratory: Denies: shortness of breath Gastrointestinal/Abdominal: Denies: abdominal pain Genitourinary: Denies: burning Objective Last 24 Hour Vital Signs Date Time Temp Pulse Resp B/P Pulse Ox O2 Delivery O2 Flow Rate FiO2 06/17/16 09:15 118 156/104 06/17/16 08:08 121 06/17/16 07:36 97.7 118 20 156/104 97 Room Air 06/17/16 07:00 99 Nasal Cannula 2.0 06/17/16 07:00 Nasal Cannula 2.0 06/17/16 04:00 97.9 69 20 141/97 98 Room Air 06/17/16 04:00 71 06/17/16 00:06 97.2 71 21 123/98 99 Room Air 06/17/16 00:00 57 06/16/16 20:43 Nasal Cannula 2.0 28 06/16/16 20:43 98 Nasal Cannula 2.0 28 06/16/16 20:23 93 155/95 06/16/16 20:12 97.2 93 20 155/95 96 Room Air 06/16/16 20:00 94 06/16/16 16:00 97.2 104 22 161/88 97 Room Air 06/16/16 11:20 97.7 101 20 145/96 98 Room Air General Appearance: no apparent distress, alert Neck: supple Cardiovascular: normal rate, regular rhythm Respiratory/Chest: lungs clear, normal breath sounds Abdomen: normal bowel sounds, non tender, soft Extremities: no swelling Intake and Output 06/16/16 06/17/16 19:00 07:00 Intake Total 300 ml 480 ml Output Total 250 ml Balance 300 ml 230 ml Intake Oral 480 ml IV Total 300 ml Output Urine Total 250 ml # Voids 1 5 ALEX SIDHU Jun 17, 2016 10:38
[2016-06-17 11:23] VITALS: BP 158/86
--- NOTE | 2016-06-17 13:51 | Neurology Progress Note ---
Interim History Interim History Interim History Mr. Stewart feels better. He continues to be seizure-free. He feels that his mind is clearing up. He feels generally stronger. He is now more aware as to why he was hospitalized. He still denies having had seizures in the past. He however says he was on a blood thinner in the past for an irregular heart beat. . Review of Systems Neuro Review of Systems Benign. Objective Physical Exam Last Vital Signs Date Time Temp Pulse Resp B/P Pulse Ox O2 Delivery O2 Flow Rate FiO2 06/17/16 12:15 115 158/86 06/17/16 11:23 97.6 20 96 Room Air 06/17/16 07:00 2.0 06/16/16 20:43 28 Neurologic Exam Objective PHYSICAL EXAMINATION: GENERAL: He is a well-developed, well-nourished, pleasant black gentleman, lying in bed, in no acute distress. HEAD: Normocephalic and atraumatic. EENT: Benign. NECK: No neck rigidity was observed. NEUROLOGIC EXAMINATION: MENTAL STATUS EXAMINATION: He was awake and alert. He was oriented to self , [facility] and Hospital only. He did not know the date, year or name of the hospital. He was able to recall 3 /3 words immediately, but could not remember 1/3 in 1 and 3 minutes. He knew that Raffaele was President but could not remember prior Presidents. His mathematical skills were impaired. His visuospatial function was also impaired. SPEECH: He had no dysarthria. LANGUAGE: He had an anomia for low-frequency words. CRANIAL NERVE EXAMINATION: II: The visual soares were intact to confrontation testing. III, IV & : The external ocular movements were full and the pupils 3 mm in diameter, equal, round, regular, and reactive to light. V: He had normal facial sensations and the temporales, masseters, and pterygoids functioned normally. VII: He had a mild right VII central facial paresis. VIII: He was able to hear well bilaterally and had no nystagmus. IX: The palate moved symmetrically on phonation. X: He had no hoarseness of voice. XI: The sternocleidomastoids and trapezii function normally. XII: The tongue was in the midline without any fasciculations or atrophy. He did have a bite pramod on the right lateral aspect of the tongue. MOTOR SYSTEM: The tone was normal in all four extremities. Examination of muscle mass revealed no focal wasting. Examination of power revealed grade 5/ 5 power except for grade 4+/5 power in the right finger extensors and grade 4/5 power in the right iliopsoas. SENSORY EXAMINATION: He had intact sensations to pinprick, light touch, and graphesthesia. COORDINATION: He performed well on [id number]-[id number]-goon testing. He was unable to perform [id number] testing. REFLEXES: 2+ on the right and 1+ on the left in the biceps, triceps, brachioradialis, and knees, 0 at both ankles. The plantar responses were flexor bilaterally. STANCE: He stood up with support on one sides. GAIT: He walked with support on one side with a mildly right paretic gait. Impression/Recommendations Diagnostic Impression 1. Mr. Jesse Stewart is a 76-year-old, right-handed, black gentleman, who does have a past history of hypertension, a questionable history of a stroke 20 years ago, a questionable history of seizures in the past, and recently cognitive dysfunction. 2. He was brought into the [facility] emergency room, in the early hours of 06/15/2016 for a single seizure at home witnessed by family and then another seizure in the ambulance, unfortunately no description of the seizure is available. 3. He feels better today and has had no further seizures. 4. On neurological examination, at this time, he does demonstrate an irregularly irregular pulse, and on the monitor has atrial fibrillation. He has problems with orientation, recent and remote memory, visuospatial function, higher cognitive function, and language. He also has a right hemiparesis involving the face, upper and lower extremities with brisker reflexes on the right side compared to the left with a mildly right paretic gait. His cognitive function is minimally better. 5. Laboratory data revealed a CBC that is relatively benign except for macrocytic indices, a chemistry panel, which reveals a BUN elevated to 24, creatinine elevated to 1.3, glucose elevated to 158, but normal B12 level, normal TSH, a relatively normal urinalysis except for 30-40 red blood cells per high-power field. A urine toxicology screen is positive for tetrahydrocannabinols in the urine. A single prolactin level is elevated. 6. The CT scan of the brain without contrast reveals atrophy and deep white matter changes, but no acute pathology. 7. The EEG revealed a mild encephalopathy, left temporal dysfunction and a left mid-temporal epileptogenic focus. 8. The patient's history and neurological examination are most compatible with possible breakthrough seizures in a patient with a prior history of seizures who is not taking his antiseizure medicine. The patients seizure type is most probably left temporal focal with secondary generalization 9. The right hemiparesis is unexplained at this point in time, but may be related to his prior history of a stroke versus a new cerebrovascular event that is invisible on the CT scan. Recommendations 1. Continue present management. 2. Continue Keppra 750 mg q.12 hours. 3. Await MRI scan of the brain to evaluate for an acute versus chronic reason for his right hemiparesis. 4. Continue Eliquis for atrial fibrillation related stroke prophylaxis. 5. Observe cognitive function. Lester Villareal M.D., M.S.P.H. LESTER VILLAREAL Jun 17, 2016 13:51
[2016-06-17 15:16] LABS: BASOPHILS % (AUTO) 1.3 % (0.0-2.0); EOSINOPHILS % (AUTO) 0.6 % (0.0-3.0); LYMPHOCYTES % (AUTO) 9.9 % (20.0-45.0); MEAN CORPUSCULAR HEMOGLOBIN 34.3 PG (27.0-31.0); MEAN CORPUSCULAR HGB CONC 34.3 G/DL (32.0-36.0); MEAN CORPUSCULAR VOLUME 100 FL (80-99); MEAN PLATELET VOLUME 7.4 FL (6.5-10.1); MONOCYTES % (AUTO) 9.5 % (1.0-10.0); NEUTROPHILS % (AUTO) 78.6 % (45.0-75.0); PLATELET COUNT 156 K/UL (150-450); RED BLOOD COUNT 4.13 M/UL (4.70-6.10); RED CELL DISTRIBUTION WIDTH 11.5 % (11.6-14.8); WHITE BLOOD COUNT 8.8 K/UL (4.8-10.8)
[2016-06-17 15:43] LABS: ANION GAP 14 (5-15); CALCIUM 9.4 mg/dL (8.6-10.2); CARBON DIOXIDE 25 mEQ/L (20-30); CHLORIDE 101 mEQ/L (98-107); CREATININE 0.8 mg/dL (0.7-1.2); HEMOLYSIS 4; POTASSIUM 3.5 mEQ/L (3.4-4.9); SODIUM 140 mEQ/L (135-145)
[2016-06-17 16:00] VITALS: BP 144/106
[2016-06-17 20:00] VITALS: BP 112/79
[2016-06-18 00:06] VITALS: BP 98/60
[2016-06-18 04:04] VITALS: BP 144/79
[2016-06-18 07:41] VITALS: BP 143/95
[2016-06-18] MEDS: Metoprolol 25mg tab ORAL SCH (08:40)
[2016-06-18] MEDS: Eliquis 2.5mg tablet ORAL SCH ×2 (08:41→18:41)
--- NOTE | 2016-06-18 10:43 | General Progress Note ---
Assessment/Plan Problem List: (1) Seizure disorder ICD Codes: G40.909 - Epilepsy, unspecified, not intractable, without status epilepticus SNOMED: 059418694 (2) LILA (acute kidney injury) ICD Codes: N17.9 - Acute kidney failure, unspecified SNOMED: 19601886 (3) Atrial fibrillation ICD Codes: I48.91 - Unspecified atrial fibrillation SNOMED: 66725940 (4) CVA (cerebral vascular accident) ICD Codes: I63.9 - Cerebral infarction, unspecified SNOMED: 816058072 (5) HTN (hypertension) ICD Codes: I10 - Essential (primary) hypertension SNOMED: 06929471 Status: stable Assessment/Plan Seizure likely due to pt's noncompliance w/ keppra. Per cousin, pt had not filled med in a while. D/w PCP at [place] who concurs that pt had not filled keppra or Eliquis in a few months Cardiology and neurology consulted, appreciate rec's s/p keppra 1g loag Cont keppra 750mg BID EEG revealed a mild encephalopathy, left temporal dysfunction and a left mid- temporal epileptogenic focus F/u MRI brain Increase MTP to 37.5mg PO BID Cont Eliquis 5mg BID (pt was on this medication per [place] med list obtained from PCP) Hold aldactone per cardiology Cont statin PT/OT/ST SW consulted for assistance w/ dispo DVT Prophylaxis: SCD, Eliquis Code Status: Full Hospital Classification Declaration: Based on this initial evaluation, and depending on the patient's clinical course, I anticipate that this patient will require hospitalization for 2-3 days for seizures and close respiratory/ hemodynamic monitoring. Disposition: Once the patient is stable to leave the hospital, I anticipate the patient will likely be discharged to the following environment: home with HH vs SNF I spent 40 minutes on this patient's case, and 22 minutes were dedicated to counseling and/or care coordination. Discussed with patient/family, nursing staff, SW/CHANTAL, cardiology, neurology regarding clinical status, treatment course , and disposition planning. Time of note may not reflect time of encounter. Subjective Date patient seen: Jun 17, 2016 Time patient seen: 09:00 ROS Limited/Unobtainable: No Constitutional: Reports: no symptoms HEENT: Reports: no symptoms Cardiovascular: Reports: no symptoms Respiratory: Reports: no symptoms Gastrointestinal/Abdominal: Reports: no symptoms Genitourinary: Reports: no symptoms Neurologic/Psychiatric: Reports: no symptoms Endocrine: Reports: no symptoms Hematologic/Lymphatic: Reports: no symptoms Allergies: Coded Allergies: No Known Allergies (Unverified , 06/15/16) All Systems: reviewed and negative except above Subjective No acute o/n events More awake, alert. Knows he is in a hospital, but does not know name or location. Does not know date Does not remember events that brought him to hospital Awaiting MRI brain Objective Last 24 Hour Vital Signs Date Time Temp Pulse Resp B/P Pulse Ox O2 Delivery O2 Flow Rate FiO2 06/18/16 08:40 56 126/67 06/18/16 07:41 97.9 108 20 143/95 98 Room Air 06/18/16 06:00 115 146/70 06/18/16 04:04 98.0 105 20 144/79 96 Room Air 06/18/16 04:00 97 06/18/16 00:06 98.0 61 20 98/60 94 Room Air 06/18/16 00:00 66 06/17/16 21:54 90 112/79 06/17/16 21:53 90 112/79 06/17/16 20:00 97.5 90 20 112/79 98 Room Air 06/17/16 20:00 61 06/17/16 19:26 97 Room Air 06/17/16 19:26 Nasal Cannula 2.0 28 06/17/16 16:00 97.8 97 21 144/106 96 Room Air 06/17/16 16:00 93 06/17/16 12:15 115 158/86 06/17/16 11:23 97.6 115 20 158/86 96 Room Air Intake and Output 06/17/16 06/18/16 19:00 07:00 Intake Total 560 ml 350 ml Balance 560 ml 350 ml Intake Oral 560 ml 350 ml # Voids 4 4 Laboratory Tests 06/17/16 14:35: White Blood Count 8.8, Red Blood Count 4.13L, Hemoglobin 14.2, Hematocrit 41.3L , Mean Corpuscular Volume 100H, Mean Corpuscular Hemoglobin 34.3H, Mean Corpuscular Hemoglobin Concent 34.3, Red Cell Distribution Width 11.5L, Platelet Count 156, Mean Platelet Volume 7.4, Neutrophils (%) (Auto) 78.6H, Lymphocytes (%) (Auto) 9.9L, Monocytes (%) (Auto) 9.5, Eosinophils (%) (Auto) 0.6, Basophils (%) (Auto) 1.3, Sodium Level 140, Potassium Level 3.5, Chloride Level 101, Carbon Dioxide Level 25, Anion Gap 14, Blood Urea Nitrogen 10, Creatinine 0.8, Estimat Glomerular Filtration Rate , Glucose Level 124H, Calcium Level 9.4 Height (Feet): 6 Height (Inches): 1.00 Weight (Pounds): 220 Objective General: alert, cooperative, no distress, appears stated age Head: normocephalic, without obvious abnormality, atraumatic Eyes: conjunctivae/corneas clear. PERRL, EOM's intact Throat: lips, mucosa, and tongue normal. MMM Neck: supple, symmetrical, trachea midline, and no JVD Lungs: clear to auscultation bilaterally Heart: irregularly irregular, S1, S2 normal, no murmur, click, rub or gallop Abdomen: soft, non-tender, non-distended, bowel sounds normal; no masses or organomegaly Extremities: extremities normal, atraumatic, no cyanosis or edema Pulses: 2+ and symmetric Skin: skin color, texture, turgor normal; no rashes or lesions Neurologic: grossly normal, no focal deficits Oskar Fam M.D. Jun 18, 2016 10:43
[2016-06-18 11:21] VITALS: BP 143/88
--- NOTE | 2016-06-18 12:50 | General Progress Note ---
Assessment/Plan Problem List: (1) Seizure disorder ICD Codes: G40.909 - Epilepsy, unspecified, not intractable, without status epilepticus SNOMED: 806808329 (2) LILA (acute kidney injury) ICD Codes: N17.9 - Acute kidney failure, unspecified SNOMED: 99519459 (3) Atrial fibrillation ICD Codes: I48.91 - Unspecified atrial fibrillation SNOMED: 63529759 (4) CVA (cerebral vascular accident) ICD Codes: I63.9 - Cerebral infarction, unspecified SNOMED: 488836484 (5) HTN (hypertension) ICD Codes: I10 - Essential (primary) hypertension SNOMED: 59834296 Status: stable Assessment/Plan Seizure likely due to pt's noncompliance w/ keppra. Per cousin, pt had not filled med in a while. D/w PCP at [place] who concurs that pt had not filled keppra or Eliquis in a few months Cardiology and neurology consulted, appreciate rec's s/p keppra 1g loag Cont keppra 750mg BID EEG revealed a mild encephalopathy, left temporal dysfunction and a left mid- temporal epileptogenic focus F/u MRI brain Increase MTP to 37.5mg PO BID Cont Eliquis 5mg BID (pt was on this medication per [place] med list obtained from PCP) Hold aldactone per cardiology Cont statin PT/OT/ST SW consulted for assistance w/ dispo DVT Prophylaxis: SCD, Eliquis Code Status: Full Hospital Classification Declaration: Based on this initial evaluation, and depending on the patient's clinical course, I anticipate that this patient will require hospitalization for 1-2 days for seizures and close respiratory/ hemodynamic monitoring. Disposition: Once the patient is stable to leave the hospital, I anticipate the patient will likely be discharged to the following environment: home with HH vs SNF I spent 40 minutes on this patient's case, and 22 minutes were dedicated to counseling and/or care coordination. Discussed with patient/family, nursing staff, SW/CHANTAL, cardiology, neurology regarding clinical status, treatment course , and disposition planning. Time of note may not reflect time of encounter. Subjective Date patient seen: Jun 18, 2016 Time patient seen: 12:49 ROS Limited/Unobtainable: No Constitutional: Reports: no symptoms HEENT: Reports: no symptoms Respiratory: Reports: no symptoms Gastrointestinal/Abdominal: Reports: no symptoms Genitourinary: Reports: no symptoms Neurologic/Psychiatric: Reports: no symptoms Endocrine: Reports: no symptoms Hematologic/Lymphatic: Reports: no symptoms Allergies: Coded Allergies: No Known Allergies (Unverified , 06/15/16) All Systems: reviewed and negative except above Subjective No acute o/n events More awake, alert. Knows he is in a hospital, but does not know name or location. Does not know date Does not remember events that brought him to hospital Awaiting MRI brain Objective Last 24 Hour Vital Signs Date Time Temp Pulse Resp B/P Pulse Ox O2 Delivery O2 Flow Rate FiO2 06/18/16 11:21 98.1 82 20 143/88 98 Room Air 06/18/16 08:40 56 126/67 06/18/16 08:00 106 06/18/16 07:41 97.9 108 20 143/95 98 Room Air 06/18/16 06:00 115 146/70 06/18/16 04:04 98.0 105 20 144/79 96 Room Air 06/18/16 04:00 97 06/18/16 00:06 98.0 61 20 98/60 94 Room Air 06/18/16 00:00 66 06/17/16 21:54 90 112/79 06/17/16 21:53 90 112/79 06/17/16 20:00 97.5 90 20 112/79 98 Room Air 06/17/16 20:00 61 06/17/16 19:26 97 Room Air 06/17/16 19:26 Nasal Cannula 2.0 28 06/17/16 16:00 97.8 97 21 144/106 96 Room Air 06/17/16 16:00 93 Intake and Output 06/17/16 06/18/16 19:00 07:00 Intake Total 560 ml 350 ml Balance 560 ml 350 ml Intake Oral 560 ml 350 ml # Voids 4 4 Laboratory Tests 06/17/16 14:35: White Blood Count 8.8, Red Blood Count 4.13L, Hemoglobin 14.2, Hematocrit 41.3L , Mean Corpuscular Volume 100H, Mean Corpuscular Hemoglobin 34.3H, Mean Corpuscular Hemoglobin Concent 34.3, Red Cell Distribution Width 11.5L, Platelet Count 156, Mean Platelet Volume 7.4, Neutrophils (%) (Auto) 78.6H, Lymphocytes (%) (Auto) 9.9L, Monocytes (%) (Auto) 9.5, Eosinophils (%) (Auto) 0.6, Basophils (%) (Auto) 1.3, Sodium Level 140, Potassium Level 3.5, Chloride Level 101, Carbon Dioxide Level 25, Anion Gap 14, Blood Urea Nitrogen 10, Creatinine 0.8, Estimat Glomerular Filtration Rate , Glucose Level 124H, Calcium Level 9.4 Height (Feet): 6 Height (Inches): 1.00 Weight (Pounds): 220 Objective General: alert, cooperative, no distress, appears stated age Head: normocephalic, without obvious abnormality, atraumatic Eyes: conjunctivae/corneas clear. PERRL, EOM's intact Throat: lips, mucosa, and tongue normal. MMM Neck: supple, symmetrical, trachea midline, and no JVD Lungs: clear to auscultation bilaterally Heart: irregularly irregular, S1, S2 normal, no murmur, click, rub or gallop Abdomen: soft, non-tender, non-distended, bowel sounds normal; no masses or organomegaly Extremities: extremities normal, atraumatic, no cyanosis or edema Pulses: 2+ and symmetric Skin: skin color, texture, turgor normal; no rashes or lesions Neurologic: grossly normal, no focal deficits Oskar Fam M.D. Jun 18, 2016 12:50
--- NOTE | 2016-06-18 13:39 | Neurology Progress Note ---
Interim History Interim History Interim History Mr. Stewart feels better. He has been seizure-free. He feels that his mind is clearer. He feels generally stronger. He is now more aware as to why he was hospitalized. He still denies having had seizures in the past. He however says he was on a blood thinner in the past for an irregular heart beat. . Review of Systems Neuro Review of Systems Benign. Objective Physical Exam Last Vital Signs Date Time Temp Pulse Resp B/P Pulse Ox O2 Delivery O2 Flow Rate FiO2 06/18/16 13:24 96 143/88 06/18/16 11:21 98.1 20 98 Room Air 06/17/16 19:26 2.0 28 Laboratory Tests Test 06/17/16 14:35 White Blood Count 8.8 K/UL (4.8-10.8) Red Blood Count 4.13 M/UL (4.70-6.10) L Hemoglobin 14.2 G/DL (14.2-18.0) Hematocrit 41.3 % (42.0-52.0) L Mean Corpuscular Volume 100 FL (80-99) H Mean Corpuscular Hemoglobin 34.3 PG (27.0-31.0) H Mean Corpuscular Hemoglobin Concent 34.3 G/DL (32.0-36.0) Red Cell Distribution Width 11.5 % (11.6-14.8) L Platelet Count 156 K/UL (150-450) Mean Platelet Volume 7.4 FL (6.5-10.1) Neutrophils (%) (Auto) 78.6 % (45.0-75.0) H Lymphocytes (%) (Auto) 9.9 % (20.0-45.0) L Monocytes (%) (Auto) 9.5 % (1.0-10.0) Eosinophils (%) (Auto) 0.6 % (0.0-3.0) Basophils (%) (Auto) 1.3 % (0.0-2.0) Sodium Level 140 mEQ/L (135-145) Potassium Level 3.5 mEQ/L (3.4-4.9) Chloride Level 101 mEQ/L (98-107) Carbon Dioxide Level 25 mEQ/L (20-30) Anion Gap 14 (5-15) Blood Urea Nitrogen 10 mg/dL (7-23) Creatinine 0.8 mg/dL (0.7-1.2) Estimat Glomerular Filtration Rate mL/min (>60) Glucose Level 124 mg/dL (74-106) H Calcium Level 9.4 mg/dL (8.6-10.2) Neurologic Exam Objective PHYSICAL EXAMINATION: GENERAL: He is a well-developed, well-nourished, pleasant black gentleman, lying in bed, in no acute distress. HEAD: Normocephalic and atraumatic. EENT: Benign. NECK: No neck rigidity was observed. NEUROLOGIC EXAMINATION: MENTAL STATUS EXAMINATION: He was awake and alert. He was oriented to self and Hospital only. He did not know the date, month, year or name of the hospital. He was able to recall 3/3 words immediately, but could not remember 2/3 in 1 and 3 minutes. He was able to remember presidents Trump and Obama only. His mathematical skills were impaired. His visuospatial function was also impaired. SPEECH: He had no dysarthria. LANGUAGE: He had an anomia for low-frequency words. CRANIAL NERVE EXAMINATION: II: The visual soares were intact to confrontation testing. III, IV & : The external ocular movements were full and the pupils 3 mm in diameter, equal, round, regular, and reactive to light. V: He had normal facial sensations and the temporales, masseters, and pterygoids functioned normally. VII: He had a mild right VII central facial paresis. VIII: He was able to hear well bilaterally and had no nystagmus. IX: The palate moved symmetrically on phonation. X: He had no hoarseness of voice. XI: The sternocleidomastoids and trapezii function normally. XII: The tongue was in the midline without any fasciculations or atrophy. He did have a bite pramod on the right lateral aspect of the tongue. MOTOR SYSTEM: The tone was normal in all four extremities. Examination of muscle mass revealed no focal wasting. Examination of power revealed grade 5/ 5 power except for grade 5-/5 power in the right finger extensors and grade 4++/ 5 power in the right iliopsoas. SENSORY EXAMINATION: He had intact sensations to pinprick, light touch, and graphesthesia. COORDINATION: He performed well on [id number] testing. He was unable to perform [id number] testing. REFLEXES: 2+ on the right and 1+ on the left in the biceps, triceps, brachioradialis, and knees, 0 at both ankles. The plantar responses were flexor bilaterally. STANCE: He stood up with support on one side. GAIT: He walked with support on one side with a mildly right paretic gait. Impression/Recommendations Diagnostic Impression 1. Mr. Jesse Stewart is a 76-year-old, right-handed, black gentleman, who does have a past history of hypertension, a questionable history of a stroke 20 years ago, a questionable history of seizures in the past, and recently cognitive dysfunction. 2. He was brought into the [facility] emergency room, in the early hours of 06/15/2016 for a single seizure at home witnessed by family and then another seizure in the ambulance, unfortunately no description of the seizure is available. 3. He feels better today and continues to be seizure free. 4. On neurological examination, at this time, he does demonstrate an irregularly irregular pulse, and on the monitor has atrial fibrillation. He has problems with orientation, recent and remote memory, visuospatial function, higher cognitive function, and language. He also has a right hemiparesis involving the face, upper and lower extremities with brisker reflexes on the right side compared to the left with a mildly right paretic gait. His cognitive function is minimally better. 5. Laboratory data revealed a CBC that is relatively benign except for macrocytic indices, a chemistry panel, which reveals a BUN elevated to 24, creatinine elevated to 1.3, glucose elevated to 158, but normal B12 level, normal TSH, a relatively normal urinalysis except for 30-40 red blood cells per high-power field. A urine toxicology screen is positive for tetrahydrocannabinols in the urine. A single prolactin level is elevated. 6. The CT scan of the brain without contrast reveals atrophy and deep white matter changes, but no acute pathology. 7. The EEG revealed a mild encephalopathy, left temporal dysfunction and a left mid-temporal epileptogenic focus. 8. The patient's history and neurological examination are most compatible with possible breakthrough seizures in a patient with a prior history of seizures who is not taking his antiseizure medicine. The patients seizure type is most probably left temporal focal with secondary generalization 9. The right hemiparesis is unexplained at this point in time, but may be related to his prior history of a stroke versus a new cerebrovascular event that is invisible on the CT scan. Recommendations 1. Continue present management. 2. Continue Keppra 750 mg q.12 hours. 3. Await MRI scan of the brain to evaluate for an acute versus chronic reason for his right hemiparesis. 4. Continue Eliquis for atrial fibrillation related stroke prophylaxis. 5. Observe cognitive function. Adair Villareal M.D., M.S.P.[facility]. ADAIR VILLAREAL Jun 18, 2016 13:39
--- NOTE | 2016-06-18 15:02 | Cardiology Progress Note ---
Assessment/Plan Assessment/Plan afib permanenet siezure htn bradycardia nocturnal related to high vagal tone and meds based on his risk score he veronica benefit form anticoagulation for stroke prevention he previously has been on Coumadin through the [facility] he say in now on eliquis (need to make sure he can take with his insurance as outpt ) better heart rate control on dilt and bb will give short activn bb instead o long acting so hr at nite will be less slow will give more bb in amd and less at nite will eventually need pacemaker Subjective Cardiovascular: Denies: chest pain, lightheadedness, palpitations Respiratory: Denies: shortness of breath Gastrointestinal/Abdominal: Denies: abdominal pain Genitourinary: Denies: burning Objective Last 24 Hour Vital Signs Date Time Temp Pulse Resp B/P Pulse Ox O2 Delivery O2 Flow Rate FiO2 06/18/16 13:24 96 143/88 06/18/16 12:00 96 06/18/16 11:21 98.1 82 20 143/88 98 Room Air 06/18/16 08:40 56 126/67 06/18/16 08:00 106 06/18/16 07:41 97.9 108 20 143/95 98 Room Air 06/18/16 06:00 115 146/70 06/18/16 04:04 98.0 105 20 144/79 96 Room Air 06/18/16 04:00 97 06/18/16 00:06 98.0 61 20 98/60 94 Room Air 06/18/16 00:00 66 06/17/16 21:54 90 112/79 06/17/16 21:53 90 112/79 06/17/16 20:00 97.5 90 20 112/79 98 Room Air 06/17/16 20:00 61 06/17/16 19:26 97 Room Air 06/17/16 19:26 Nasal Cannula 2.0 28 06/17/16 16:00 97.8 97 21 144/106 96 Room Air 06/17/16 16:00 93 General Appearance: no apparent distress, alert Neck: supple Cardiovascular: tachycardia, irregularly irregular Respiratory/Chest: lungs clear Abdomen: normal bowel sounds, non tender, soft Extremities: no swelling Intake and Output 06/17/16 06/18/16 19:00 07:00 Intake Total 560 ml 350 ml Balance 560 ml 350 ml Intake Oral 560 ml 350 ml # Voids 4 4 ALEX SIDHU Jun 18, 2016 15:02
[2016-06-18 16:00] VITALS: BP 129/92
[2016-06-18] MEDS ORDERED: Metoprolol 25mg tab ORAL SCH (16:30)
[2016-06-18] MEDS ORDERED: Tubing IV Secondary IV ONE (16:44)
[2016-06-18] MEDS ORDERED: NS 275ml ONE (16:44)
[2016-06-18 20:00] VITALS: BP 134/79
[2016-06-19 00:01] VITALS: BP 127/90
[2016-06-19 04:25] VITALS: BP 144/74
[2016-06-19] MEDS ORDERED: Metoprolol 50mg tab ORAL SCH (06:30)
[2016-06-19 07:26] LABS: EOSINOPHILS % (AUTO) 0.1 % (0.0-3.0); LYMPHOCYTES % (AUTO) 8.4 % (20.0-45.0); MEAN CORPUSCULAR HEMOGLOBIN 35.1 PG (27.0-31.0); MEAN CORPUSCULAR HGB CONC 34.4 G/DL (32.0-36.0); MEAN CORPUSCULAR VOLUME 102 FL (80-99); MEAN PLATELET VOLUME 7.1 FL (6.5-10.1); MONOCYTES % (AUTO) 7.7 % (1.0-10.0); NEUTROPHILS % (AUTO) 82.8 % (45.0-75.0); PLATELET COUNT 162 K/UL (150-450); RED CELL DISTRIBUTION WIDTH 11.6 % (11.6-14.8); WHITE BLOOD COUNT 7.3 K/UL (4.8-10.8)
[2016-06-19 07:48] LABS: ANION GAP 17 (5-15); CALCIUM 9.1 mg/dL (8.6-10.2); CARBON DIOXIDE 23 mEQ/L (20-30); CHLORIDE 99 mEQ/L (98-107); CREATININE 0.9 mg/dL (0.7-1.2); HEMOLYSIS 17; MAGNESIUM 1.7 mg/dL (1.7-2.5); SODIUM 139 mEQ/L (135-145)
[2016-06-19 08:00] VITALS: BP 157/90
--- NOTE | 2016-06-19 08:36 | Diagnostic Imaging Report ---
Indication: Altered mental status, right-sided weakness, history of seizures, history of prior CVA Technique: sagittal T1 fast spin echo, axial T1 and T2 FLAIR PROPELLER, axial T2 FS PROPELLER, T2* GRE, axial diffusion weighted images, coronal T2 FLAIR PROPELLER, coronal FSPGR WHALEN post contrast axial and coronal T1 FLAIR PROPELLER images. ADC and exponential ADC maps generated Comparison: Reference made to brain CT October 13, 2016 Findings: There is some image degradation due to motion artifact.. No abnormal areas of restricted diffusion to suggest acute infarction. No acute hemorrhage or edema. No mass effect nor midline shift. No abnormal contrast enhancement. There is age-related enlargement of ventricles and extra axial CSF spaces. There is confluent periventricular deep white matter chronic ischemic change. There is an old infarct in the left brannon radiata region, also described on recent CT Visualized orbits and sinuses are unremarkable. On the coronal images, no definite significant hippocampal abnormality or asymmetry demonstrated, although there is considerable degradation of these images due to motion artifact.. Impression: Somewhat limited exam, due to degradation of some sequences by motion artifact. 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 No other findings to indicate etiology of stated clinical history of seizures. Grossly normal hippocampi
[2016-06-19] MEDS: Eliquis 2.5mg tablet ORAL SCH (08:59)
[2016-06-19] MEDS ORDERED: Diltiazem CD 180mg cap ORAL SCH (09:00)
[2016-06-19] MEDS ORDERED: METOPROLOL TART50 MG ORAL (10:35)
[2016-06-19] MEDS ORDERED: ELIQUIS2.5 MG ORAL (10:35)
[2016-06-19] MEDS ORDERED: KEPPRA500 MG ORAL (10:35)
[2016-06-19] MEDS ORDERED: LOPRESSOR25 M1 ORAL (10:35)
[2016-06-19] MEDS ORDERED: ATORVASTATIN CA40 MG ORAL (10:35)
--- NOTE | 2016-06-19 11:27 | Neurology Progress Note ---
Interim History Interim History Interim History Mr. Stewart continues to feel better. He has been seizure-free. He feels that his mind is clearer. He feels generally stronger. He is now more aware as to why he was hospitalized. He still denies having had seizures in the past. Plans are to send him home. Review of Systems Neuro Review of Systems Benign. Objective Physical Exam Last Vital Signs Date Time Temp Pulse Resp B/P Pulse Ox O2 Delivery O2 Flow Rate FiO2 06/19/16 08:59 78 157/90 06/19/16 08:00 96.9 18 Room Air 06/19/16 04:25 95 06/17/16 19:26 2.0 28 Laboratory Tests Test 06/19/16 05:15 White Blood Count 7.3 K/UL (4.8-10.8) Red Blood Count 4.00 M/UL (4.70-6.10) L Hemoglobin 14.0 G/DL (14.2-18.0) L Hematocrit 40.8 % (42.0-52.0) L Mean Corpuscular Volume 102 FL (80-99) H Mean Corpuscular Hemoglobin 35.1 PG (27.0-31.0) H Mean Corpuscular Hemoglobin Concent 34.4 G/DL (32.0-36.0) Red Cell Distribution Width 11.6 % (11.6-14.8) Platelet Count 162 K/UL (150-450) Mean Platelet Volume 7.1 FL (6.5-10.1) Neutrophils (%) (Auto) 82.8 % (45.0-75.0) H Lymphocytes (%) (Auto) 8.4 % (20.0-45.0) L Monocytes (%) (Auto) 7.7 % (1.0-10.0) Eosinophils (%) (Auto) 0.1 % (0.0-3.0) Basophils (%) (Auto) 1.0 % (0.0-2.0) Sodium Level 139 mEQ/L (135-145) Potassium Level 4.0 mEQ/L (3.4-4.9) Chloride Level 99 mEQ/L (98-107) Carbon Dioxide Level 23 mEQ/L (20-30) Anion Gap 17 (5-15) H Blood Urea Nitrogen 10 mg/dL (7-23) Creatinine 0.9 mg/dL (0.7-1.2) Estimat Glomerular Filtration Rate mL/min (>60) Glucose Level 150 mg/dL (74-106) H Calcium Level 9.1 mg/dL (8.6-10.2) Magnesium Level 1.7 mg/dL (1.7-2.5) Neurologic Exam Objective PHYSICAL EXAMINATION: GENERAL: He is a well-developed, well-nourished, pleasant black gentleman, lying in bed, in no acute distress. HEAD: Normocephalic and atraumatic. EENT: Benign. NECK: No neck rigidity was observed. NEUROLOGIC EXAMINATION: MENTAL STATUS EXAMINATION: He was awake and alert. He was oriented to self, February and Hospital only. He did not know the date, year or name of the hospital. He was able to recall 3 /3 words immediately, but could not remember 2/3 in 1 and 3 minutes. He was able to remember presidents Trump and Obama only. His mathematical skills were impaired. His visuospatial function was also impaired. SPEECH: He had no dysarthria. LANGUAGE: He had an anomia for low-frequency words. CRANIAL NERVE EXAMINATION: II: The visual soares were intact to confrontation testing. III, IV & : The external ocular movements were full and the pupils 3 mm in diameter, equal, round, regular, and reactive to light. V: He had normal facial sensations and the temporales, masseters, and pterygoids functioned normally. VII: He had a mild right VII central facial paresis. VIII: He was able to hear well bilaterally and had no nystagmus. IX: The palate moved symmetrically on phonation. X: He had no hoarseness of voice. XI: The sternocleidomastoids and trapezii function normally. XII: The tongue was in the midline without any fasciculations or atrophy. He did have a bite pramod on the right lateral aspect of the tongue. MOTOR SYSTEM: The tone was normal in all four extremities. Examination of muscle mass revealed no focal wasting. Examination of power revealed grade 5/ 5 power except for grade 5-/5 power in the right finger extensors and grade 4++/ 5 power in the right iliopsoas. SENSORY EXAMINATION: He had intact sensations to pinprick, light touch, and graphesthesia. COORDINATION: He performed well on [id number] testing. He was unable to perform [id number] testing. REFLEXES: 2+ on the right and 1+ on the left in the biceps, triceps, brachioradialis, and knees, 0 at both ankles. The plantar responses were flexor bilaterally. STANCE: He stood up with support on one side. GAIT: He walked with support on one side with a mildly right paretic gait. Impression/Recommendations Diagnostic Impression 1. Mr. Jesse Stewart is a 76-year-old, right-handed, black gentleman, who does have a past history of hypertension, a questionable history of a stroke 20 years ago, a questionable history of seizures in the past, and recently cognitive dysfunction. 2. He was brought into the [facility] emergency room, in the early hours of 06/15/2016 for a single seizure at home witnessed by family and then another seizure in the ambulance, unfortunately no description of the seizure is available. 3. He feels better today and continues to be seizure free. 4. On neurological examination, at this time, he does demonstrate an irregularly irregular pulse, and on the monitor has atrial fibrillation. He has problems with orientation, recent and remote memory, visuospatial function, higher cognitive function, and language. He also has a right hemiparesis involving the face, upper and lower extremities with brisker reflexes on the right side compared to the left with a mildly right paretic gait. His cognitive function is minimally better. 5. Laboratory data revealed a CBC that is relatively benign except for macrocytic indices, a chemistry panel, which reveals a BUN elevated to 24, creatinine elevated to 1.3, glucose elevated to 158, but normal B12 level, normal TSH, a relatively normal urinalysis except for 30-40 red blood cells per high-power field. A urine toxicology screen is positive for tetrahydrocannabinols in the urine. A single prolactin level is elevated. 6. The CT scan of the brain without contrast reveals atrophy and deep white matter changes, but no acute pathology. 7. The MRI of the brain revealed an old left brannon radiata infarct and old deep white matter changes in addition to atrophy.. 8. The EEG revealed a mild encephalopathy, left temporal dysfunction and a left mid-temporal epileptogenic focus. 9. The patient's history and neurological examination are most compatible with possible breakthrough seizures in a patient with a prior history of seizures who is not taking his antiseizure medicine. The patients seizure type is most probably left temporal focal with secondary generalization 10. 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 11. He continues to be in atrial fibrillation. Recommendations 1. Continue present management. 2. Continue Keppra 750 mg q.12 hours. 3. Await MRI scan of the brain to evaluate for an acute versus chronic reason for his right hemiparesis. 4. Continue Eliquis for atrial fibrillation related stroke prophylaxis. 5. Observe cognitive function. Lester Brown M.D., M.S.P.Josie. LESTER BROWN Jun 19, 2016 11:27
[2016-06-19 11:50] VITALS: BP 126/74
--- NOTE | 2016-06-19 12:15 | Discharge Summary ---
Discharge Summary Hospital Course Date of Admission Jun 15, 2016 at 02:43 Date of Discharge 06/19/16 Admitting Diagnosis SEIZURE Reason for Hospitalization: seizure, AMS HPI 76 y/o male with pmh of Afib, HTN, CVA (10-12 years ago per cousin), dementia, seizure d/o who presents with witnessed seizure event. Per cousin at bedside, pt noted to have witness seizure activity around 1AM. Pt then w/ labored breathing. [place] called 911. Pt noted to have another seizure en route to ER. Pt again w/ another episode of seizure in ER. In ED, pt loaded w/ keppra 1g IV. CT head neg for acute process. Consultations Neurology Cardiology Procedures MRI brain - Somewhat limited exam, due to degradation of some sequences by motion artifact. Chronic and age-related changes, as described. Negative for acute intracranial bleed, mass effect, acute infarct, or contrast enhancing lesion. 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 EEG - This is an abnormal EEG characterized by: 1. Slowing of the background in the 7-8 Hz range in the best awake state. 2. The presence of left temporal polymorphic delta activity seen during drowsiness and sleep. 3. The presence of a few isolated T3 sharp discharges. This study is consistent with: 1. An encephalopathy of a mild degree. 2. Focal left temporal dysfunction. 3. A left midtemporal epileptogenic focus. Hospital Course Pt was admitted and monitored. Pt reHe was noted to be altered, intemrittently somnolent, agitated likely secondary to post-ictal state. Pt was seen by neurology. MRI brain showed no acute abnormality. EEG showed a left midtemporal epileptogenic focus. Pt was continued on keppra 750mg PO BID per neurology. It ws found that pt was not taking his keppra since he had not followed up for refills per his PCP at the [facility]. Pt also noted to be initially bradycardic but then went into Afib with rapid ventricular rate. Pt's meds were optimized per cardiology. Pt was resumed on Eliquis for anticoagulation--again it was found that pt had not followed up for refills. Discharge Medications New Medications: Diltiazem Hcl* (Cardizem Cd*) 180 Mg Cap.er.24h 180 MG ORAL DAILY for 30 Days, CAP Do not open, chew or crush capsule; swallow whole Apixaban (Eliquis) 2.5 Mg Tablet 5 MG ORAL BID for 30 Days, TAB Atorvastatin Calcium* (Atorvastatin Calcium*) 40 Mg Tablet 40 MG ORAL BEDTIME for 30 Days, TAB Levetiracetam (Keppra) 250 Mg Tablet 750 MG ORAL Q12HR for 30 Days, TAB Metoprolol Tartrate (Metoprolol Tartrate) 25 Mg Tablet 25 MG ORAL QPM for 30 Days, TAB Metoprolol Tartrate* (Metoprolol Tartrate*) 50 Mg Tablet 50 MG ORAL ACBREAKFAST for 30 Days, TAB Discontinued Medications: Levetiracetam (Levetiracetam) 250 Mg Tablet 250 MG PO BID, TAB Metoprolol Tartrate* (Metoprolol Tartrate*) 25 Mg Tablet 25 MG ORAL EVERY 12 HOURS, TAB Spironolactone* (Aldactone*) 25 Mg Tablet 25 MG ORAL DAILY, TAB Discharge Condition Upon Discharge: stable Discharge Disposition Patient was discharged to home with home health + [facility] Discharge Diagnoses: (1) Seizure disorder (2) Atrial fibrillation with RVR (3) Bradycardia (4) HTN (hypertension) Discharge Instructions Discharge Instructions Follow up with: PCP at [facility] Dr. Leonila Campos MD/Return to Hospital if: chest pain, SOB, f/c Services Upon Discharge: home health services Diet: low fat Activity: resume normal activities Oskar Fam M.D. Jun 19, 2016 12:15
--- NOTE | 2016-06-19 14:49 | Cardiology Progress Note ---
Assessment/Plan Assessment/Plan afib permanenet siezure htn bradycardia nocturnal related to high vagal tone and meds based on his risk score he veronica benefit form anticoagulation for stroke prevention in now on eliquis (need to make sure he can take with his insurance as outpt ) better heart rate control on dilt and bb will give short acting bb instead of long acting so hr at nite will be less slow will give more bb in am and less at nite will eventually need pacemaker hr at thie moment seem much imporved d/w dr colon tele reviwed i have explaiend to the pt the importanc eof with pmd Subjective ROS Limited/Unobtainable: No Cardiovascular: Denies: chest pain, lightheadedness, palpitations Respiratory: Denies: shortness of breath Gastrointestinal/Abdominal: Reports: abdominal pain Genitourinary: Denies: burning Objective Last 24 Hour Vital Signs Date Time Temp Pulse Resp B/P Pulse Ox O2 Delivery O2 Flow Rate FiO2 06/19/16 12:51 104 06/19/16 11:50 97.0 60 18 126/74 97 Room Air 06/19/16 08:59 78 157/90 06/19/16 08:05 145 06/19/16 08:00 96.9 123 18 157/90 Room Air 06/19/16 06:16 124 144/70 06/19/16 04:25 98.1 78 20 144/74 95 Room Air 06/19/16 04:00 147 06/19/16 00:01 97.7 80 19 127/90 97 Room Air 06/19/16 00:00 87 06/18/16 21:37 72 134/79 06/18/16 20:00 59 06/18/16 20:00 97.3 67 16 134/79 97 Room Air 06/18/16 19:40 97 Room Air 06/18/16 19:40 Room Air 06/18/16 17:28 97 129/92 06/18/16 16:00 91 06/18/16 16:00 98.6 97 20 129/92 97 Room Air General Appearance: no apparent distress, alert Neck: supple Cardiovascular: irregularly irregular Respiratory/Chest: lungs clear, normal breath sounds Abdomen: normal bowel sounds, non tender, soft Extremities: no swelling Intake and Output 06/18/16 06/19/16 19:00 07:00 Intake Total 760 ml 200 ml Balance 760 ml 200 ml Intake Oral 560 ml 200 ml IV Total 200 ml # Voids 2 1 Laboratory Tests Test 06/19/16 05:15 White Blood Count 7.3 K/UL (4.8-10.8) Red Blood Count 4.00 M/UL (4.70-6.10) L Hemoglobin 14.0 G/DL (14.2-18.0) L Hematocrit 40.8 % (42.0-52.0) L Mean Corpuscular Volume 102 FL (80-99) H Mean Corpuscular Hemoglobin 35.1 PG (27.0-31.0) H Mean Corpuscular Hemoglobin Concent 34.4 G/DL (32.0-36.0) Red Cell Distribution Width 11.6 % (11.6-14.8) Platelet Count 162 K/UL (150-450) Mean Platelet Volume 7.1 FL (6.5-10.1) Neutrophils (%) (Auto) 82.8 % (45.0-75.0) H Lymphocytes (%) (Auto) 8.4 % (20.0-45.0) L Monocytes (%) (Auto) 7.7 % (1.0-10.0) Eosinophils (%) (Auto) 0.1 % (0.0-3.0) Basophils (%) (Auto) 1.0 % (0.0-2.0) Sodium Level 139 mEQ/L (135-145) Potassium Level 4.0 mEQ/L (3.4-4.9) Chloride Level 99 mEQ/L (98-107) Carbon Dioxide Level 23 mEQ/L (20-30) Anion Gap 17 (5-15) H Blood Urea Nitrogen 10 mg/dL (7-23) Creatinine 0.9 mg/dL (0.7-1.2) Estimat Glomerular Filtration Rate mL/min (>60) Glucose Level 150 mg/dL (74-106) H Calcium Level 9.1 mg/dL (8.6-10.2) Magnesium Level 1.7 mg/dL (1.7-2.5) ALEX SIDHU Jun 19, 2016 14:49
[2016-06-19 20:10] LABS: VITAMIN D 25-OH TOTAL 39 ng/mL (.)
[2016-06-19] MEDS ORDERED: CARDIZEM CD180 MG ORAL (22:12)
== END 2016-06-19 15:20 | disposition home health service (06) | DRG 100 ==
LOC: EDBD 02:07 → EMR 02:39 → 2E 02:43 → EDBEDREQ 04:09 → 2E 06-16 07:13
DX: G40.909 Epilepsy, unspecified, not intractable, without status epilepticus (principal); G93.40 Encephalopathy, unspecified; N17.9 Acute kidney failure, unspecified; G81.91 Hemiplegia, unspecified affecting right dominant side; I48.91 Unspecified atrial fibrillation; R00.1 Bradycardia, unspecified; I10 Essential (primary) hypertension; Z91.14 Patient's other noncompliance with medication regimen; Z86.73 Personal history of transient ischemic attack (TIA), and cerebral infarction without residual deficits
CPT/HCPCS: 36415; 36600; 70450; 70553; 71010; 80048; 80053; 80156; 80164; 80184; 80185; 80299; 80300; 80329; 81003; 82306; 82550; 82553; 82607; 82746; 82803; 83036; 83735; 84100; 84146; 84443; 84484; 85025; 85651; 86592; 93005; 94760; 95819; A9585; J8499